=== PATIENT | female | born 1965 | race Caucasian/White ===

== ENCOUNTER → 2020-07-11 14:26 | Outpatient (CLI) | payer SELFPAY ==
--- NOTE | ~2020-07-11 | XR_ITS ---
EXAMINATION: XR lumbar spine 2-3V DATE: 07/11/2020 14:52 INDICATION: Low back pain. TECHNIQUE: 3 views of lumbar spine were obtained. COMPARISON: None. FINDINGS: There is 4 degrees dextrocurvature of lumbar spine. Vertebral body heights are normal. Ther e is moderately decreased disc height at L5-S1. There are endplate osteophytes at most levels. There is multilevel mild facet joint osteoarthritis. There is a 6 x 3 mm calcification in the expected area of proximal right ureter. IMPRESSION: 1. Mild lumbar spondylosis. 2. Calcification in the expected area of proximal right ureter that may be a ureteral stone or vascul ar calcification. Reviewed, dictated and finalized at location A. IMPRESSION: 1. Mild lumbar spondylosis. 2. Calcification in the expected area of proximal right ureter that may be a ur eteral stone or vascular calcification.
== END ==
PROVIDERS: PCP Family Medicine Adolescent Medicine; Visit Provider Family Medicine Adolescent Medicine
DX: M47.896 Other spondylosis, lumbar region (principal)
CPT/HCPCS: 72100

== ENCOUNTER → 2020-07-27 13:32 | Outpatient (CLI) | payer SELFPAY ==
--- NOTE | ~2020-07-27 | MR_ITS ---
EXAMINATION: MR lumbar spine wo/w con EXAM DATE: 07/27/2020 15:22 INDICATION: Low back pain, left leg pain, symptoms 3 weeks. Previous low back surgery 5 years ago. TECHNIQUE: Multi-sequential, multiplanar MR images of the lumbar spine were obtained without contrast . Sagittal T1, T2, T2 fat saturation images. Axial T2 weighted images. Axial T1 weighted sequence. Patient was then injected with 14 mL Multihance intravenous contrast and reimaged. Postcontrast axi al and sagittal T1-weighted fat saturation sequences were obtained. Comparison is made to prior exami nation from 10/19/2014. FINDINGS: There is moderate disc disease L5-S1 with endplate degenerative signal change. The vertebra l body and disc heights are otherwise well maintained. The vertebral bodies are aligned in the AP dim ension. The conus medullaris terminates at the L1/2 level and has normal signal intensity and morphol ogy. There is an 8 mm hemangioma within the L1 vertebral body. No suspicious marrow signal abnormali ty's. Paraspinal soft tissue is unremarkable. There are no areas of abnormal enhancement on the post contrast images. Incidental note made of somewhat tubular appearing cystic region in the right presacral region, poten tially could be ovarian in origin; recommend pelvic ultrasound for further evaluation. Level by level evaluation: T12-L1: Disc does not extend beyond the endplate margin. Facet arthropathy: Mild. Neural foraminal stenosis: No stenosis. Central canal stenosis: No stenosis. L1-L2: Disc does not extend beyond the endplate margin. Facet arthropathy: Mild. Neural foraminal stenosis: No stenosis. Central canal stenosis: No stenosis. L2-L3: Disc does not extend beyond the endplate margin. Facet arthropathy: Mild. Neural foraminal stenosis: No stenosis. Central canal stenosis: No stenosis. L3-L4: There is a minimal diffuse disc bulge. Facet arthropathy: Mild. Neural foraminal stenosis: No stenosis. Central canal stenosis: No stenosis. L4-L5: There is a mild diffuse disc bulge. Facet arthropathy: Mild. Neural foraminal stenosis: Mild bilateral. Central canal stenosis: No stenosis. L5-S1: There is a moderate-sized disc bulge asymmetric to the left causing narrowing of the left late ral recess. Facet arthropathy: Mild. Neural foraminal stenosis: Mild to moderate left. Central canal stenosis: Left lateral recess stenosis, overall mild to moderate central canal stenosis . Disc bulge at L5-S1 was present in 2014, but is larger with more mass effect and lateral recess, and some progression in the disc height loss, development of endplate degenerative signal change at that level. IMPRESSION: 1. Possible incidental cystic right ovarian lesion or hydrosalpinx; recommend pelvic sonogram for fu rther evaluation. 2. Moderate disc disease L5-S1, with asymmetric disc bulge narrowing left lateral recess, could be c ausing mass effect on traversing S1 nerve root; Correlate clinically for muscle weakness of plantar flexion, sensory change of the lateral foot and small toe, and depressed ankle reflex. 3. Otherwise mild lumbar spondylosis. Reviewed, dictated and finalized at location G. IMPRESSION: 1. Possible incidental cystic right ovarian lesion or hydrosalpinx; recommend pelvic sonogram for further evaluation. 2. Moderate disc disease L5-S1, with asymmetric disc bulge narrowing left late ral recess, could be causing mass effect on traversing S1 nerve root; Correlat e clinically for muscle weakness of plantar flexion, sensory change of the late ral foot and small toe, and depressed ankle reflex. 3. Otherwise mild lumbar spondylosis.
[2020-07-27 14:56] LABS: Estimated Glomerular Filt Rate > 60
== END ==
DX: M51.37 Other intervertebral disc degeneration, lumbosacral region (principal); M47.896 Other spondylosis, lumbar region
CPT/HCPCS: 72158; A9577

== ENCOUNTER → 2020-09-13 10:44 | Outpatient (CLI) | payer BC, SELFPAY ==
--- NOTE | ~2020-09-13 | US_ITS ---
EXAMINATION: US retroperitoneal comp EXAM DATE: 09/13/2020 11:42 INDICATION: Right kidney stone TECHNIQUE: Multiple grayscale and Doppler images of the kidneys were obtained (by a technologist who performed the scan) and subsequently reviewed. There is no prior study for comparison. FINDINGS: Right kidney: There is normal contour and echogenicity. It measures 10.0 x 4.5 x 5.2 centimeters. T here are no focal renal lesions identified, did not identify the suspected right kidney stone seen on x-ray obtained at same time. There is no hydronephrosis. Left kidney: There is normal contour and echogenicity. It measures 9.9 x 4.4 x 5.0 centimeters. The re are no focal renal lesions identified. There is no hydronephrosis. Somewhat bilobulated elongated cystic region in the midline of the pelvis, could be bladder but appea puneet did not change following patient voiding (patient reports only small amount of voiding at the t rivas). This could be patient's bladder, could be bladder diverticulum remaining filled with urine post void, or could be other structure. Patient likely had cross-sectional imaging at outside institution given history provided, consider correlating with that exam. IMPRESSION: 1. Sonographically unremarkable kidneys. 2. Cystic pelvic midline region, could be bladder, bladder diverticulum, less likely ovarian origin. See above. Reviewed, dictated and finalized at location B. T [address] [facility]
--- NOTE | ~2020-09-13 | XR_ITS ---
EXAMINATION: XR abdomen/kub 1V EXAM DATE: 09/13/2020 11:16 INDICATION: Right kidney stone TECHNIQUE: Frontal projection(s) of the abdomen for interpretation. There is no prior study for sowmya gonzalez. FINDINGS: There is approximately 8 mm calcification projecting over the right kidney, probably kidne y stone. Calcifications in the pelvis are believed to be phleboliths. There is a nonobstructive bowel gas pattern. There are no osseous abnormalities identified. IMPRESSION: Probable right nephrolithiasis. Reviewed, dictated and finalized at location B. L [employer]
== END ==
PROVIDERS: PCP Family Medicine Adolescent Medicine; Visit Provider Urology
DX: N20.0 Calculus of kidney (principal)
CPT/HCPCS: 74018; 76770

== ENCOUNTER → 2020-11-01 13:42 | Outpatient (CLI) | payer BC, SELFPAY ==
--- NOTE | ~2020-11-01 | XR_ITS ---
XR abdomen/kub 1V 11/01/2020 14:02 INDICATION: Right kidney stone TECHNIQUE: KUB COMPARISON: 09/13/2020 FINDINGS: Bowel gas pattern is normal. There is no evidence of free air, mass, organomegaly, ascites or obstruction. No abnormal calculi are seen. The previously identified right renal stone not visua lized on the current study. There are pelvic phleboliths. The bones appear intact. IMPRESSION: 1: No acute abdominal abnormality identified. Reviewed, dictated and finalized at location A. [facility]
== END ==
PROVIDERS: PCP Family Medicine Adolescent Medicine; Visit Provider Urology
DX: N20.0 Calculus of kidney (principal)
CPT/HCPCS: 74018

== ENCOUNTER → 2021-03-29 17:07 | Outpatient (CLI) | payer BC, SELFPAY ==
--- NOTE | ~2021-03-29 | MM_ITS ---
EXAMINATION: MM screening maxi BI w lydia HISTORY: Screening TECHNIQUE: Craniocaudal and mediolateral oblique 3-D tomosynthesis images were obtained and synthetic 2-D images were generated. CAD analysis was submitted and interpreted. COMPARISON: Comparison to multiple prior studies sequentially, with oldest reviewed study dated 08/07. BREAST PARENCHYMAL COMPOSITION: The breasts are heterogenously dense, which may obscure small masses. FINDINGS: There is focal architectural distortion in the upper outer quadrant of the right breast wit h adjacent tissue marker. The left breast is stable without evidence for malignancy. IMPRESSION: 1. Developing focal architectural distortion upper outer quadrant of the right breast. 2. Additional mammographic views and possible breast ultrasound are recommended. BI-RADS Category 0: Incomplete: Needs additional imaging evaluation. Reviewed, dictated and finalized at location A. IMPRESSION: 1. Developing focal architectural distortion upper outer quadrant of the right breast. 2. Additional mammographic views and possible breast ultrasound are recommended . BI-RADS Category 0: Incomplete: Needs additional imaging evaluation.
== END ==
PROVIDERS: PCP Family Medicine Adolescent Medicine; Visit Provider Obstetrics & Gynecology Gynecology
DX: Z12.31 Encounter for screening mammogram for malignant neoplasm of breast (principal); R92.8 Other abnormal and inconclusive findings on diagnostic imaging of breast
CPT/HCPCS: 77063; 77067

== ENCOUNTER → 2021-04-25 08:43 | Outpatient (CLI) | payer BC, SELFPAY ==
--- NOTE | ~2021-04-25 | US_ITS ---
US pelvic complete w TV 04/25/2021 10:12 Indication: Pelvic pain. Hydrosalpinx. Procedure: High-resolution ultrasound of the pelvis utilizing transabdominal and transvaginal ultraso und Comparison: No prior studies for comparison. Findings: The uterus is surgically absent. In the right adnexa there are 2 adjacent or possibly one s eptated cystic mass. The masses measure 4.7 x 3.9 x 4 cm and 4.9 x 3.8 x 3.5 cm respectively. There i s a single internal septation. Left ovary is not visualized. Impression: 1: Cystic masses of the right adnexa containing a single internal septation. Differential diagnosis i ncludes hydrosalpinx, paraovarian/paratubal cysts, serous cystadenoma, peritoneal inclusion cyst. Reviewed, dictated and finalized at location A. Impression: 1: Cystic masses of the right adnexa containing a single internal septation. Di fferential diagnosis includes hydrosalpinx, paraovarian/paratubal cysts, serous cystadenoma, peritoneal inclusion cyst.
--- NOTE | ~2021-04-25 | MMUS_ITS ---
EXAMINATION: MM diagnostic mammo unilat RT, US breast RT limited HISTORY: Right breast architectural distortion on screening mammogram TECHNIQUE: Additional 3-D tomosynthesis images of the right breast were performed and synthetic 2-D i mages were generated. CAD analysis was submitted and interpreted. High resolution limited right breas t ultrasound was performed. COMPARISON: 03/29/2021, 03/31/2019, 03/24/2019 FINDINGS: MAMMOGRAPHIC FINDINGS: There is a spiculated mass in the upper outer quadrant of the right breast at the 10:00 location 7 cm from the nipple which appears to have increased in size since the comparison examinations. An adjace nt biopsy marker is noted. ULTRASOUND: There is an 11 mm irregular hypoechoic mass with angular and spiculated margins, posterior acoustic s hadowing, and internal vascularity at the 10:00 location 6 cm from the nipple. The mass has a similar appearance to the 2019 comparison. IMPRESSION: 1. Mass in the upper outer quadrant of the right breast with possible increase in size since the comp arison examinations. Although an adjacent biopsy marker is seen, ultrasound-guided biopsy is recommen ded. BI-RADS category 4, suspicious findings. Reviewed, dictated and finalized at location A. IMPRESSION: 1. Mass in the upper outer quadrant of the right breast with possible increase in size since the comparison examinations. Although an adjacent biopsy marker i s seen, ultrasound-guided biopsy is recommended. BI-RADS category 4, suspicious findings.
== END ==
PROVIDERS: Visit Provider Obstetrics & Gynecology Gynecology
DX: R92.8 Other abnormal and inconclusive findings on diagnostic imaging of breast (principal); R10.2 Pelvic and perineal pain; N63.11 Unspecified lump in the right breast, upper outer quadrant; N70.11 Chronic salpingitis
CPT/HCPCS: 76642; 76830; 76856; 77065

== ENCOUNTER 2021-05-19 08:53 | Outpatient (CLI) | payer BC, OTHER, SELFPAY ==
--- NOTE | ~2021-05-19 | MMUS_ITS ---
EXAMINATION: US breast biopsy RT w image, MM post biopsy invasive RT DATE: 05/19/2021 10:31 (accession [id number]), 05/19/2021 10:27 (accession [id number]) INDICATION: Indeterminate mass in the upper outer quadrant of the right breast. Ultrasound-guided cor e biopsy is requested to evaluate for malignancy. TECHNIQUE AND FINDINGS: The risks and potential benefits of the procedure were discussed with the patient including bleeding, infection, and nondiagnostic specimen. A time out was performed. The skin of the right breast was pr epared and draped in usual sterile fashion. 1% lidocaine was used for superficial anesthesia. 1% lido hussain with epinephrine was used for deep anesthesia. A vacuum-assisted biopsy gun needle was advanced through to the outer edge of the region of interest from an inferior approach utilizing sonographic guidance. A total of four tissue core samples were ob tained through the lesion. A tissue marker clip was then placed at the biopsy site. Hemostasis was ac hieved. A sterile bandage was applied. The patient tolerated procedure well and there was no evidence of immediate complication. The patient was given verbal instructions to return to the Emergency Department in the event of severe breast pa in or rapid breast enlargement. A two view right breast mammogram was obtained to document tissue mar ker clip placement. IMPRESSION: 1. Successful ultrasound-guided vacuum-assisted biopsy of right breast mass with tissue marker placem ent. Reviewed, dictated and finalized at location A. IMPRESSION: 1. Successful ultrasound-guided vacuum-assisted biopsy of right breast mass wit h tissue marker placement.
== END 2021-05-19 08:54 | disposition home or self-care (01) ==
LOC: ANHIMG 08:58
PROVIDERS: PCP Family Medicine Adolescent Medicine; Visit Provider Surgery
DX: C50.911 Malignant neoplasm of unspecified site of right female breast (principal)
CPT/HCPCS: 19083; 88305; 88360; A4648

== ENCOUNTER → 2021-05-30 10:43 | Outpatient (CLI) | payer BC, OTHER, SELFPAY ==
--- NOTE | ~2021-05-30 | US_ITS ---
EXAMINATION: US renal BI DATE: 05/30/2021 11:10 INDICATION: Right kidney stone TECHNIQUE: Multiple grayscale and Doppler ultrasound images of the kidneys were obtained. COMPARISON: 09/13/2020, 04/25/2021 FINDINGS: The right kidney measures 9.7 x 6.2 x 4.6 cm. The left kidney measures 10.0 x 4.6 x 4.6 cm. The kidneys demonstrate normal parenchymal echogenicity. There is no hydronephrosis. The bladder is normal. Cysts are again noted in the left adnexa which measure up to 4.4 cm. IMPRESSION: 1. Normal kidneys without hydronephrosis. 2. Left adnexal cysts. Follow-up pelvic ultrasound in one year is recommended for a postmenopausal pa tient. Reviewed, dictated and finalized at location B. IMPRESSION: 1. Normal kidneys without hydronephrosis. 2. Left adnexal cysts. Follow-up pelvic ultrasound in one year is recommended f or a postmenopausal patient.
--- NOTE | ~2021-05-30 | XR_ITS ---
EXAMINATION: XR abdomen/kub 1V EXAM DATE: 05/30/2021 11:43 INDICATION: Right-sided kidney stone. TECHNIQUE: Frontal projection(s) of the abdomen for interpretation. Comparison is made to prior exami nation from 11/01/2020. FINDINGS: There is moderate amount of colonic stool and gas, obscuring the renal contours. No small bowel dilation, nonobstructive bowel gas pattern. There are no suspicious calcifications identifie d. There is no organomegaly suspected. The bones are unremarkable. There is no free intraperito alise air. The lung bases are clear. IMPRESSION: Unremarkable abdomen x-ray exam. Reviewed, dictated and finalized at location A.
== END ==
PROVIDERS: PCP Family Medicine Adolescent Medicine; Visit Provider Urology
DX: N20.0 Calculus of kidney (principal)
CPT/HCPCS: 74018; 76775

== ENCOUNTER 2021-06-06 13:06 | Outpatient (CLI) | payer BC, OTHER, SELFPAY ==
--- NOTE | 2021-06-06 13:18 | ECG_ITS ---
Measurements Intervals [place] Rate: 71 P: 38 IN: 130 QRS: 20 QRSD: 94 T: 55 QT: 401 QTc: 437 Interpretive Statements SINUS RHYTHM MINIMAL Q WAVES- INFERIOR LEADS BORDERLINE T WAVE ABNORMALITY- DIFFUSE LEADS BASELINE ARTIFACT- I, II, AVR, AVL BORDERLINE ECG Electronically Signed On 06-06-2021 16:03:44 CDT by Quinton Gay D.O.
[2021-06-06 14:20] LABS: Basophils Percent Auto 0.5 % (0.2-1.2); Eosinophils Absolute Auto 0.4 K/mm3 (0-0.3); Hemoglobin 12.3 g/dL (12.0-15.0); Immature Granulocyte Absolute 0.04 K/mm3 (0.00-0.031); Immature Granulocyte Percent A 0.5 % (0-0.5); Lymphocytes Absolute Auto 3.17 K/mm3 (0.9-3.2); Lymphocytes Percent Auto 41.9 % (18.3-44.2); Mean Corpuscular HGB Conc 31.5 g/dl (32-36); Mean Corpuscular Hemoglobin 30.7 pg (26-34); Mean Corpuscular Volume 97.3 fl (80-100); Mean Platelet Volume 10.2 fl (7.4-10.4); Monocytes Absolute Auto 0.5 K/mm3 (0.1-0.6); Monocytes Percent Auto 6.6 % (2.6-8.5); Neutrophils Absolute Auto 3.4 K/mm3 (1.3-6.7); Neutrophils Percent Auto 45.5 % (45.5-73.1); Platelet Count Result 221 k/mm3 (150-375); Red Blood Count 4.01 M/mm3 (4.2-5.4); Red Cell Distribution Width 12.6 % (11.5-14.5); White Blood Count 7.6 K/mm3 (4.5-10.0)
[2021-06-06 14:30] LABS: Anion Gap 8 mmol/L (8-16); Blood Urea Nitrogen 21 mg/dL (7-17); Calcium 9.1 mg/dL (8.4-10.2); Carbon Dioxide 24 mmol/L (22-30); Chloride 113 mmol/L (98-107); Estimated Glomerular Filt Rate 47; Glucose 123 mg/dL (65-110); Potassium 4.2 mmol/L (3.4-5.0); Sodium 145 mmol/L (137-145)
== END 2021-06-06 13:07 | disposition home or self-care (01) ==
PROVIDERS: PCP Family Medicine Adolescent Medicine; Visit Provider Surgery
DX: C50.911 Malignant neoplasm of unspecified site of right female breast (principal); E78.00 Pure hypercholesterolemia, unspecified; I10 Essential (primary) hypertension; Z01.818 Encounter for other preprocedural examination
CPT/HCPCS: 36415; 80048; 85025; 93005

== ENCOUNTER 2021-06-12 02:15 | Day surgery (SDC) | payer BC, OTHER, SELFPAY ==
[2021-06-06 09:50] VITALS: BMI 26.4
--- NOTE | 2021-06-09 12:38 | WPDANESEPPF ---
Anes - Initial Pre Proc Eval Procedure: Operation Date: 06/12/21 09:30 Proposed Procedures p Right Breast Lumpectomy with [place] Lymph Node Biopsy, Possible Right Axillary Dissection - Tre Urrutia MD s Ultrasound and/or Mammogram Guided Needle Localization Right Breast - Tre Urrutia MD Date/Time: 06/09/21 12:38 Surgeon: Tre Urrutia MD Pre Op Diagnosis: right breast CA Patient Data Age: 56 Gender: F Height: 1.74 m Weight: 80 kg Allergies Allergy/AdvReac Type Severity Reaction Status Date / Time codeine Allergy Mild RASH AND Verified 06/12/21 07:38 ITCHING Home Medications Medication Instructions Recorded Confirmed Type atorvastatin 40 mg tablet 40 mg PO DAILY 05/03/21 06/12/21 History bupropion HCl 300 mg 24 hr tablet, 300 mg PO QAM 05/03/21 06/12/21 History extended release lorazepam 1 mg tablet 1 mg PO DAILY 05/03/21 06/12/21 History propranolol 80 mg capsule,24 80 mg PO DAILY 05/03/21 06/12/21 History hr,extended release sumatriptan succinate 100 mg tablet 100 mg PO ONCE PRN 05/03/21 06/12/21 History topiramate 50 mg tablet 200 mg PO DAILY 05/03/21 06/12/21 History trazodone 100 mg tablet 100 mg PO QHS PRN 05/03/21 06/12/21 History venlafaxine 75 mg capsule,extended 75 mg PO DAILY 05/03/21 06/12/21 History release 24 hr biotin 10,000 mcg-keratin 100 mg 1 tablet PO DAILY 05/08/21 06/12/21 History tablet lactobacillus combo no.11 15 1 cap PO DAILY 05/08/21 06/12/21 History billion cell sprinkle capsule loratadine [Allergy Relief 10 mg PO DAILY 06/06/21 06/12/21 History (loratadine)] Patient hx anesthesia problems: none Family hx anesthesia problems: none PMFSH Past Medical History Medical History (Updated 06/09/21 @ 12:38 by Gopi Scanlon MD) Anxiety Depression High cholesterol Hypercholesteremia Hypertension Kidney stones Surgical History Surgical History H/O lithotripsy History of appendectomy Previous back surgery S/P hysterectomy Family History Family History Father Diabetes mellitus Sibling Liver cancer Heart attack Unknown Diabetes mellitus Hypertension Cancer Nervous disorder Allergy Social History Social History Years smoked: 5 Smoking status: Current every day smoker Tobacco type: cigarettes Alcohol intake: current Alcohol use details: occasional Substance use: current Substance use type: marijuana Other substance usage details: medical marijuana for back injury Last use: 03-30-21 Living arrangements: with friend(s) Spiritual care concerns: No Anes - Eval Final PreProcedure Day of Procedure 06/09/21 12:38 Patient weight: overweight Heart: regular rate and rhythm Lungs: clear to auscultation Airway: Mallampati scale class II Neurological: alert and oriented Last oral intake: >/= 8 hours ASA classification: III Emergent: no Anesthetic plan: proceed Anesthesia type and monitoring: general ETT and standard monitoring Informed Consent: The patient's anesthetic plan and its attendant risks and benefits were discussed with the patient/family/POA. Questions were solicited and answers provided to the satisfaction of the patient/family/POA.
[2021-06-12] VITALS (8 sets, daily range): BP systolic 103–122; BP diastolic 56–79; PULSE 68–87; RESP 12–20; TEMP 36.2–36.3; O2SAT 92–100
--- NOTE | ~2021-06-12 | NM_ITS ---
EXAMINATION: MM needle loc RT, MM surgical specimen RT, NM sentinel node inject only MAMMOGRAPHY SPECIMEN DATE: 06/12/2021 11:07 CDT INDICATION: Left breast cancer. TECHNIQUE: The procedure for a mammography-guided needle localization was discussed with the patient' s. Risks and benefits were detailed, including risks of bleeding, infection, pain, and nondiagnostic specimen. The patient verbalized understanding and agreed to proceed. The time out was performed to verify the patient's name, date of , and site of procedure. The p atient was placed in the right is compression, and the skin overlying the right breast was prepped in usual fashion. Utilizing mammography guidance, a needle was advanced into the right breast. Two co nfirmatory films were obtained. The patient tolerated procedure without immediate complication. 1 Millicuries Tc 99m filtered sulfur colloid was injected and 4 aliquots in the anterior upper outer quadrant of the breast near the areola. No images were obtained. A specimen radiograph was performed. IMPRESSION: 1. Successful mammography-guided right breast needle localization. 2: Status post sentinel lymph node injection. Reviewed, dictated and finalized at location A. IMPRESSION: 1. Successful mammography-guided right breast needle localization. 2: Status post sentinel lymph node injection. IMPRESSION: 1. Successful mammography-guided right breast needle localization. 2: Status post sentinel lymph node injection.
[2021-06-12] MEDS: LACTATED RINGERS 1,000 ML 30 ML IV CONT ×2 (07:05→11:44)
--- NOTE | 2021-06-12 07:13 | WPDHPUPDATE1 ---
History and Physical Update Update Date/Time: 06/12/21 07:13 History and Physical has been reviewed, including an updated exam of the patient. There are NO changes in the patient's condition. Risks, benefits, and alternatives have been discussed and questions answered. Patient agrees to proceed with procedure.
[2021-06-12] MEDS: fentaNYL CITRATE INJ (*CRX) 100 MCG/2 ML VIAL 25 MCG IV PUSH (07:18)
--- NOTE | 2021-06-12 07:50 | SUR.PREOP ---
0720 PT MEDICATED FOR C/O HEADACHE 0742 PT TO MAMMS PER WHEELCHAIR.
--- NOTE | 2021-06-12 08:54 | SUR.PREOP ---
0850 PT RETURNED FROM NUCLEAR MEDICINE
[2021-06-12] MEDS: ceFAZolin 2 GM/D5W 50 ML 2 GM/50 ML BAG IVPB (09:49)
[2021-06-12] MEDS: BUPIVACAINE/EPINEPHRINE 0.25% 10 ML VIAL 20 ML INFILTRATE (10:19)
--- NOTE | 2021-06-12 12:06 | W.PM.PROC2 ---
Procedure Note - Detailed Date of Procedure 06/12/21 Pre-op Diagnosis right breast CA Post-op Diagnosis same Procedure Performed 1. [place] lymph node biopsy times 1. 2. needle localized right breast lumpectomy. Surgeon Tre Urrutia MD Wax Ball Molder [facility] [place], [place] 1st assist Anesthesia general (via LMA) Indications patient recent core biopsy showing carcinoma of the breast Findings Only 1 sentinel lymph node which was laterally attached to the lumpectomy specimen once this was excised. Careful surge several times in the axillary area through the incision of the lumpectomy revealed no nodes hot enough to remove period and there were no palpable nodes found. Description of Procedure The patient was seen preoperatively in the holding area, and I marked the patient on the operative side. She was brought to the operating room and anesthesia delivered. She was prepped and draped in the usual sterile fashion. A time out was performed confirming patient and site of surgery. I first used the sentinel lymph node probe to check the counts at the level of the nipple and I could find areas that were as high as 4000. Following this having marked what appears to be the appropriate place for an axillary incision, I carefully used the probe to search for a hot area on the skin overlying the sentinel lymph node. We found that the hot area was between this theresa and the curvilinear incision that I had outlined that I would use for doing the lumpectomy. This was because the wire was exiting the upper outer quadrant of the right breast. Therefore, I decided to go ahead with the lumpectomy first and then try to do the sentinel lymph node through the same incision in the upper outer quadrant of the right breast. Prior to starting the incision I reviewed the mammograms that were available. The patient had 3 clips in her breast. One was more centralized underneath the nipple and I checked with Dr. Morgan from Radiology and this did not need to be excised. The other 2 were near the localizing wire and these were the ones that we wanted to target for excision. An incision was made with a 15 blade scalpel on the right intersecting the skin at the site where the localizing wire was entering the upper outer quadrant of the right breast. The subcutaneous tissues were dissected with electrocautery. A curvilinear incision was made along the wire and the tissue surrounding the wire was removed widely with electrocautery. The specimen was oriented with a long suture lateral and short suture superior and sent for specimen mammogram. Because I had not completed the sentinel lymph node biopsy, prior to sending this, we did check the entire specimen with the Navigator probe. In the lateral part of the specimen near where it would have abutted the edge of the pectoralis major muscle there was what appeared to be a hot area that read up to 800 on the 1 X setting on the navigator probe. Then went we did a 10 second count right at that site and it read out at 8625. I DID send the breast tissue for fresh tissue exam immediate report requested at pathology. Because of this I placed a green suture right next to the tissue where I thought sentinel lymph node was on the lateral side of the breast tissue specimen and sent this to mammography for a specimen mammogram. Using the Navigator sentinel lymph node probe, the sentinel lymph node was identified and the count in vivo was 865 . Then with a ex vivo 10- second count of 8625 was recorded. As we waited for the report from mammography and pathology, I then carefully used the Navigator probe throughout the incision and throughout the axilla externally on the skin and could never find anything that registered greater than 100 counts. Therefore, a second sentinel lymph node was never identified. The count in the axilla after removing this lymph node was between 20 and 95, for background noise. The sentinel lymph node was sent fresh
== END 2021-06-12 13:26 | disposition home or self-care (01) ==
PROVIDERS: PCP Family Medicine Adolescent Medicine; Visit Provider Surgery
PROC: (CPT 19301; principal; 2021-06-12 09:30)
PROC: (CPT 19301; 2021-06-12 09:30)
DX: C50.911 Malignant neoplasm of unspecified site of right female breast (principal); E78.00 Pure hypercholesterolemia, unspecified; I10 Essential (primary) hypertension; F41.8 Other specified anxiety disorders; F17.210 Nicotine dependence, cigarettes, uncomplicated; F12.90 Cannabis use, unspecified, uncomplicated
CPT/HCPCS: 19301; 38525; 19281; 38792; 76098; 88307; 88342; A9270; A9520; C1769; J0690; J1100; J2250; J2370; J2405; J2704; J2710; J3010; J7120

== ENCOUNTER → 2021-07-13 08:27 | Outpatient (CLI) | payer BC, SELFPAY ==
--- NOTE | ~2021-07-13 | US_ITS ---
EXAMINATION: US transvaginal EXAM DATE: 07/13/2021 09:02 INDICATION: Abnormal findings on diagnostic imaging of other . Follow-up right ovarian cystic lesion. TECHNIQUE: Pelvic transvaginal sonogram was performed. There are multiple grayscale and Doppler imag es available for interpretation. There is no prior study for comparison. FINDINGS: Patient has had hysterectomy. Right ovary is enlarged at 6.9 x 4.0 x 6.4 cm, with low resis tance flow confirmed. Again there are 2 contiguous simple cystic regions in the right ovary, dimensio ns today at 3.8 x 3.9 x 3.5 cm and 2.7 x 4.7 x 3.7 cm. These could be the same cystic lesion with a s eptation, 2 separate cysts, or paraovarian cysts, or chronic hydrosalpinx. If this is cystic ovarian neoplasm, would favor benign over malignant histology given absence of focal wall thickening or nodul arity. Left ovary not identified. IMPRESSION: Cystic right ovary unchanged. Differential diagnosis including cystic ovarian neoplasm, chronic hydrosalpinx. Could consider longer interval follow-up, or histologic correlation. Reviewed, dictated and finalized at location B. IMPRESSION: Cystic right ovary unchanged. Differential diagnosis including cys tic ovarian neoplasm, chronic hydrosalpinx. Could consider longer interval foll ow-up, or histologic correlation.
== END ==
PROVIDERS: PCP Family Medicine Adolescent Medicine; Visit Provider Obstetrics & Gynecology Gynecology
DX: R93.5 Abnormal findings on diagnostic imaging of other abdominal regions, including retroperitoneum (principal)
CPT/HCPCS: 76830

== ENCOUNTER 2021-11-02 10:00 | Outpatient (CLI) | payer BC, SELFPAY ==
--- NOTE | ~2021-11-02 | US_ITS ---
EXAMINATION: US pelvic complete DATE: 11/02/2021 10:58 INDICATION: Ovarian cysts Comparison:Ultrasound dated 07/13/2021 TECHNIQUE: Multiple transabdominal and endovaginal sonographic images of the pelvis performed. FINDINGS: The uterus is surgically absent. There are right ovarian cysts measuring 5.4 and 6.2 cm respectively greatest dimension. Left ovary is not visualized. There is no free fluid in the pelvis. There are no abnormal masses seen on either side. IMPRESSION: 1. Persistent right ovarian cysts, largest measuring up to 6.2 cm maximum dimension. Differential candace gnosis includes cystic ovarian neoplasm and benign functional cyst or cystadenoma. Reviewed, dictated and finalized at location A. [facility] IMPRESSION: 1. Persistent right ovarian cysts, largest measuring up to 6.2 cm maximum dimen [place]. Differential diagnosis includes cystic ovarian neoplasm and benign functi onal cyst or cystadenoma.
== END 2021-11-02 10:01 | disposition home or self-care (01) ==
LOC: ANHIMG 10:02
PROVIDERS: PCP Family Medicine Adolescent Medicine; Visit Provider Obstetrics & Gynecology Gynecology
DX: N83.201 Unspecified ovarian cyst, right side (principal)
CPT/HCPCS: 76856

== ENCOUNTER 2021-12-12 11:19 | Outpatient (CLI) | payer BC, SELFPAY ==
--- NOTE | ~2021-12-12 | MM_ITS ---
EXAMINATION: MM diagnostic maxi RT w lydia HISTORY: Right breast cancer. Status post lumpectomy 6 months prior. TECHNIQUE: Additional 3-D tomosynthesis images of were performed and synthetic 2-D images were genera christy. CAD analysis was submitted and interpreted. COMPARISON: Comparison to multiple prior studies sequentially, with oldest reviewed study dated 03/29. BREAST PARENCHYMAL COMPOSITION: The breasts are heterogenously dense, which may obscure small masses. FINDINGS: There is focal architectural distortion in the upper outer quadrant of the right breast, co nsistent with previous lumpectomy site. There are no suspicious calcifications or discrete masses. IMPRESSION: 1. Postoperative changes in the upper outer quadrant of the right breast. No evidence for malignancy. 2. Routine yearly screening mammogram and regular clinical breast examination are recommended. BI-RADS Category 2: Benign finding(s). Reviewed, dictated and finalized at location A. TER DESIGNER IMPRESSION: 1. Postoperative changes in the upper outer quadrant of the right breast. No ev idence for malignancy. 2. Routine yearly screening mammogram and regular clinical breast examination a re recommended. BI-RADS Category 2: Benign finding(s).
== END 2021-12-12 11:20 | disposition home or self-care (01) ==
LOC: ANHIMG 11:21
PROVIDERS: PCP Family Medicine Adolescent Medicine; Visit Provider Radiology Radiation Oncology
DX: C50.411 Malignant neoplasm of upper-outer quadrant of right female breast (principal); Z98.890 Other specified postprocedural states
CPT/HCPCS: 77061; 77065; G0279

== ENCOUNTER 2021-12-18 00:39 | Day surgery (SDC) | payer BC, SELFPAY ==
[2021-12-12 09:48] VITALS: BMI 25.1
[2021-12-18 09:29] VITALS: BP 105/66; PULSE 73; RESP 16; TEMP 37.1; O2SAT 98
[2021-12-18] MEDS: LACTATED RINGERS 1,000 ML 150 ML IV CONT (09:32)
--- NOTE | 2021-12-18 09:39 | WPDANESEPPF ---
Anes - Initial Pre Proc Eval Procedure: Operation Date: 12/18/21 10:30 Proposed Procedures p Screening Colonoscopy - Jared Atkinson MD Date/Time: 12/18/21 09:39 Surgeon: Jared Atkinson MD Pre Op Diagnosis: neoplasm screening Patient Data Age: 56 Gender: F Height: 1.73 m Weight: 75.9 kg Last Vital Signs Temp 37.1 C 12/18/21 09:29 Pulse 73 12/18/21 09:29 Resp 16 12/18/21 09:29 BP 105/66 12/18/21 09:29 Pulse Ox 98 12/18/21 09:29 Allergies Allergy/AdvReac Type Severity Reaction Status Date / Time codeine Allergy Mild RASH AND Verified 12/18/21 09:28 ITCHING Home Medications Medication Instructions Recorded Confirmed Type atorvastatin 40 mg tablet 40 mg PO DAILY 05/03/21 12/18/21 History lorazepam 1 mg tablet 1 mg PO DAILY 05/03/21 12/18/21 History propranolol 80 mg capsule,24 80 mg PO DAILY 05/03/21 12/18/21 History hr,extended release sumatriptan succinate 100 mg tablet 100 mg PO ONCE PRN 05/03/21 12/18/21 History topiramate 50 mg tablet 200 mg PO DAILY 05/03/21 12/18/21 History trazodone 100 mg tablet 100 mg PO QHS PRN 05/03/21 12/18/21 History venlafaxine 75 mg capsule,extended 75 mg PO DAILY 05/03/21 12/18/21 History release 24 hr biotin 10,000 mcg-keratin 100 mg 1 tablet PO DAILY 05/08/21 12/18/21 History tablet lactobacillus combo no.11 15 1 cap PO DAILY 05/08/21 12/18/21 History billion cell sprinkle capsule loratadine [Allergy Relief 10 mg PO DAILY 06/06/21 12/18/21 History (loratadine)] anastrozole 1 mg PO DAILY 07/25/21 12/18/21 History bupropion HCl 300 mg 24 hr tablet, 300 mg PO QAM #90 tablet 12/12/21 12/18/21 Rx extended release Patient hx anesthesia problems: none Family hx anesthesia problems: none Results Review: All pre-operative results and documents have been reviewed as part of the pre-operative evaluation. [facility] Past Medical History Medical History Anxiety Depression High cholesterol Hypercholesteremia Hypertension Kidney stones Surgical History Surgical History H/O lithotripsy History of appendectomy History of lumpectomy 06/12/21 [place] lymph node biopsy times 1. 2. needle localized right breast lumpectomy. Previous back surgery S/P hysterectomy Family History Family History Father Diabetes mellitus Sibling Liver cancer Heart attack Unknown Diabetes mellitus Hypertension Cancer Nervous disorder Allergy Social History Social History Smoking packs per day: 0.5 Smoking cigarettes per day: 10.0 Years smoked: 8 Smoking pack-years: 4.00 Smoking status: Former smoker Tobacco type: cigarettes Smokeless tobacco user: other Additional smoking assessment comments: down to 1/4 pack of day currently vaping Alcohol intake: never Alcohol use details: occasional Substance use: current Substance use type: does not use Other substance usage details: medical marijuana for back injury Last use: 03-30-21 Living arrangements: with family Spiritual care concerns: No Anes - Eval Final PreProcedure Day of Procedure 12/18/21 09:39 Patient weight: overweight Heart: regular rate and rhythm Lungs: clear to auscultation and normal air movement Airway: Mallampati scale class II Neurological: alert and oriented Last oral intake: >/= 8 hours ASA classification: III Emergent: no Anesthetic plan: proceed Anesthesia type and monitoring: general GIVS and standard monitoring Results Review: All pre-operative results and documents have been reviewed as part of the pre-operative evaluation. Informed Consent: The patient's anesthetic plan and its attendant risks and benefits were discussed with the patient/family/POA. Questions were solicited
--- NOTE | 2021-12-18 10:16 | PM.HPGS ---
History of Present Illness History of Present Illness Consent: Risks, benefits, and alternatives have been discussed and questions answered. Patient agrees to proceed with procedure. Chief complaint: neoplasm screening Narrative: Daisy Benz is a 56 year old female with colon polyp 5 years ago. Review of Systems Constitutional: Constitutional: Denies headache(s) and Denies weakness Eyes: Eyes: Denies blurry vision ENT: Reports Normal hearing present, Denies headache(s) and Denies neck pain Cardiovascular: Cardiovascular: Denies chest pain and Denies dyspnea Respiratory: Respiratory: Denies dyspnea Gastrointestinal: Gastrointestinal: Reports no additional gastrointestinal complaints Genitourinary: Genitourinary: Denies dysuria Musculoskeletal: Musculoskeletal: Denies neck pain Integumentary/Breasts: Skin/Breast: Denies dry skin Neurologic: Reports Normal hearing present, Denies headache(s) and Denies weakness Psychiatric: Psychiatric: Denies anxiety Endocrine: Endocrine: Denies change in body appearance Hematologic/Lymphatic: Hematologic/Lymphatic: Denies easy bleeding Allergic/Immunologic: Allergic/Immunologic: Denies urticaria PMFSH Past Medical History Medical History (Updated 12/18/21 @ 10:17 by Jared Atkinson MD) Anxiety Colon polyp Depression High cholesterol Hypercholesteremia Hypertension Kidney stones Surgical History Surgical History (Updated 08/14/21 @ 09:53 by Linda Alves MD) H/O lithotripsy History of appendectomy History of lumpectomy 06/12/21 [place] lymph node biopsy times 1. 2. needle localized right breast lumpectomy. Previous back surgery S/P hysterectomy Family History Family History Father Diabetes mellitus Sibling Liver cancer Heart attack Unknown Diabetes mellitus Hypertension Cancer Nervous disorder Allergy Social History Social History Smoking packs per day: 0.5 Smoking cigarettes per day: 10.0 Years smoked: 8 Smoking pack-years: 4.00 Smoking status: Former smoker Tobacco type: cigarettes Smokeless tobacco user: other Additional smoking assessment comments: down to 1/4 pack of day currently vaping Alcohol intake: never Alcohol use details: occasional Substance use: current Substance use type: does not use Other substance usage details: medical marijuana for back injury Last use: 03-30-21 Living arrangements: with family Spiritual care concerns: No Meds Home Medications and Allergies Home Medications Medication Instructions Recorded Confirmed Type atorvastatin 40 mg tablet 40 mg PO DAILY 05/03/21 12/18/21 History lorazepam 1 mg tablet 1 mg PO DAILY 05/03/21 12/18/21 History propranolol 80 mg capsule,24 80 mg PO DAILY 05/03/21 12/18/21 History hr,extended release sumatriptan succinate 100 mg tablet 100 mg PO ONCE PRN 05/03/21 12/18/21 History topiramate 50 mg tablet 200 mg PO DAILY 05/03/21 12/18/21 History trazodone 100 mg tablet 100 mg PO QHS PRN 05/03/21 12/18/21 History venlafaxine 75 mg capsule,extended 75 mg PO DAILY 05/03/21 12/18/21 History release 24 hr biotin 10,000 mcg-keratin 100 mg 1 tablet PO DAILY 05/08/21 12/18/21 History tablet lactobacillus combo no.11 15 1 cap PO DAILY 05/08/21 12/18/21 History billion cell sprinkle capsule loratadine [Allergy Relief 10 mg PO DAILY 06/06/21 12/18/21 History (loratadine)] anastrozole 1 mg PO DAILY 07/25/21 12/18/21 History bupropion HCl 300 mg 24 hr tablet, 300 mg PO QAM #90 tablet 12/12/21 12/18/21 Rx extended release Allergies Allergy/AdvReac Type Severity Reaction Status Date / Time codeine Allergy Mild RASH AND Verified 12/18/21 09:28 ITCHING Vital Signs Vital Signs - 24 hr 12/18/21 09:29 Temperature 98.8 F Pulse Rate 73 Respiratory Rate 16 Blood Pressure 105/66 Puls
[2021-12-18 10:43] VITALS: BP 106/68; PULSE 72; RESP 16; O2SAT 99
[2021-12-18 10:53] VITALS: BP 97/55; PULSE 64; RESP 16; O2SAT 99
[2021-12-18 11:03] VITALS: BP 99/65; PULSE 63; RESP 18; O2SAT 99
== END 2021-12-18 11:13 | disposition home or self-care (01) ==
PROVIDERS: PCP Family Medicine Adolescent Medicine; Visit Provider Internal Medicine Gastroenterology
PROC: 0DJD8ZZ Inspection of Lower Intestinal Tract, Via Natural or Artificial Opening Endoscopic (ICD-10-PCS; CPT 45378; principal; 2021-12-18 10:30)
DX: Z12.11 Encounter for screening for malignant neoplasm of colon (principal); D12.4 Benign neoplasm of descending colon; K63.5 Polyp of colon; K64.8 Other hemorrhoids; I10 Essential (primary) hypertension; E78.00 Pure hypercholesterolemia, unspecified; F41.8 Other specified anxiety disorders; F17.290 Nicotine dependence, other tobacco product, uncomplicated; F12.90 Cannabis use, unspecified, uncomplicated
CPT/HCPCS: 45385; 88305; J2704; J7120

== ENCOUNTER 2022-01-29 10:05 | Outpatient (CLI) | payer BC, OTHER, SELFPAY ==
--- NOTE | ~2022-01-29 | US_ITS ---
EXAMINATION: US pelvic complete w TV DATE: 01/29/2022 11:07 INDICATION: Follow-up cysts Comparison:Ultrasound dated 11/02/2021 TECHNIQUE: Multiple transabdominal and endovaginal sonographic images of the pelvis performed. FINDINGS: The uterus is surgically absent. The right ovary measures 9.4 x 3.2 x 7.1 cm. Left ovary is not visualized. There are 2 right ovarian cyst both measuring 4.2 cm maximum dimension, decreased in size compared with prior examination. There is no free fluid in the pelvis. There are no abnormal masses seen on either side. IMPRESSION: 1. Diminishing size of simple cysts of the right ovary both measuring 4.2 cm maximum dimension. Inter braydon decrease in size suggest benign functional cysts although continued follow-up ultrasound in 6-8 w eeks recommended. Reviewed, dictated and finalized at location A. IMPRESSION: 1. Diminishing size of simple cysts of the right ovary both measuring 4.2 cm ma ximum dimension. Interval decrease in size suggest benign functional cysts alth ough continued follow-up ultrasound in 6-8 weeks recommended.
== END 2022-01-29 10:06 | disposition home or self-care (01) ==
LOC: ANHIMG 10:08
PROVIDERS: PCP Family Medicine Adolescent Medicine; Visit Provider Obstetrics & Gynecology Gynecology
DX: N83.201 Unspecified ovarian cyst, right side (principal)
CPT/HCPCS: 76830; 76856

== ENCOUNTER 2022-04-30 08:44 | Outpatient (CLI) | payer BC, OTHER, SELFPAY ==
[2022-04-30 09:32] LABS: Hematocrit 38.2 % (37.0-47.0); Hemoglobin 12.3 g/dL (12.0-15.0); Mean Corpuscular HGB Conc 32.2 g/dl (32-36); Mean Corpuscular Hemoglobin 31.6 pg (26-34); Mean Corpuscular Volume 98.2 fl (80-100); Mean Platelet Volume 9.9 fl (7.4-10.4); Platelet Count Result 269 k/mm3 (150-375); Red Blood Count 3.89 M/mm3 (4.2-5.4); Red Cell Distribution Width 12.7 % (11.5-14.5); White Blood Count 7.4 K/mm3 (4.5-10.0)
[2022-04-30 09:45] LABS: Alanine Aminotransferase 24 U/L (6-35); Albumin Level 4.2 g/dL (3.5-5.1); Alkaline Phosphatase 108 U/L (38-126); Anion Gap 7 mmol/L (8-16); Aspartate Amino Transferase 22 U/L (14-36); Bilirubin,Total 0.3 mg/dL (0.2-1.3); Blood Urea Nitrogen 16 mg/dL (7-17); Calcium 8.6 mg/dL (8.4-10.2); Carbon Dioxide 24 mmol/L (22-30); Chloride 113 mmol/L (98-107); Cholesterol 140 mg/dL (0-200); Estimated Glomerular Filt Rate 52; Glucose 107 mg/dL (65-110); HDL Direct 24 mg/dL; Sodium 144 mmol/L (137-145); Triglycerides 379 mg/dL (<150)
[2022-04-30 09:56] LABS: LDL Cholesterol Direct 39 mg/dL
[2022-04-30 10:16] LABS: Thyroid Stimulating Hormone 0.414 uIU/mL (0.465-4.680)
[2022-04-30 10:36] LABS: Hemoglobin A1C 5.6 % (<5.7)
== END 2022-04-30 08:45 | disposition home or self-care (01) ==
LOC: ANHLAB 08:46
PROVIDERS: PCP Family Medicine Adolescent Medicine; Visit Provider Physician Assistant
DX: R73.03 Prediabetes (principal); E78.2 Mixed hyperlipidemia; R53.83 Other fatigue
CPT/HCPCS: 36415; 80053; 80061; 83036; 84443; 85027

== ENCOUNTER 2022-05-03 14:08 | Outpatient (CLI) | payer BC, OTHER, SELFPAY | END 2022-05-03 14:09 | disposition home or self-care (01) | LOC: ANHLAB 14:09 | PROVIDERS: PCP Family Medicine Adolescent Medicine; Visit Provider Physician Assistant | DX: R19.7 Diarrhea, unspecified (principal) | CPT/HCPCS: 87045; 87427 ==

== ENCOUNTER 2022-05-18 08:28 | Outpatient (CLI) | payer BC, SELFPAY ==
[2022-05-18 14:38] LABS: Vitamin D 25 Hydroxy 48.4 ng/mL
== END 2022-05-18 08:29 | disposition home or self-care (01) ==
LOC: ANHLAB 08:33
PROVIDERS: PCP Family Medicine Adolescent Medicine; Visit Provider Obstetrics & Gynecology Gynecology
DX: Z13.21 Encounter for screening for nutritional disorder (principal)
CPT/HCPCS: 36415; 82306

== ENCOUNTER 2022-05-21 10:47 | Outpatient (CLI) | payer BC, SELFPAY ==
--- NOTE | ~2022-05-21 | MM_ITS ---
EXAMINATION: MM diagnostic maxi BI w lydia HISTORY: History of right breast cancer TECHNIQUE: Craniocaudal, mediolateral, and mediolateral oblique 3-D tomosynthesis images of the breas ts were performed and synthetic 2-D images were generated. CAD analysis was submitted and interpreted . COMPARISON: 12/12/2021, 04/25/2021, 03/29/2021, 03/31/2019, 03/24/2019 BREAST PARENCHYMAL COMPOSITION: The breasts are heterogeneously dense, which may obscure small masses . FINDINGS: There are stable lumpectomy changes in the upper outer quadrant of the right breast. There has been no suspicious interval change. There is no suspicious mass, calcification, or architectural distortion in the left breast to suggest malignancy. IMPRESSION: 1. Stable lumpectomy changes in the upper outer quadrant of the right breast without mammographic remigio dence of malignancy. 2. Recommend routine screening mammography in one year. BI-RADS Category 2: Benign finding(s). Reviewed, dictated and finalized at location A. IMPRESSION: 1. Stable lumpectomy changes in the upper outer quadrant of the right breast wi thout mammographic evidence of malignancy. 2. Recommend routine screening mammography in one year. BI-RADS Category 2: Benign finding(s).
== END 2022-05-21 10:48 | disposition home or self-care (01) ==
PROVIDERS: PCP Family Medicine Adolescent Medicine; Visit Provider Obstetrics & Gynecology Gynecology
DX: C50.911 Malignant neoplasm of unspecified site of right female breast (principal); C50.912 Malignant neoplasm of unspecified site of left female breast
CPT/HCPCS: 77062; 77066; G0279

== ENCOUNTER 2022-08-02 16:50 | Outpatient (CLI) | payer BC, SELFPAY ==
--- NOTE | ~2022-08-02 | DEXA_ITS ---
Bone Density Report Name: NESSA MCINTOSH Age: 57 Sex: Female Ethnicity: White Date of : 1965 Indication: postmenopausal; screening for osteoporosis; cancer; hysterectomy; Referring Provider: LOTUS ANTONIO Study: Bone densitometry was performed. Exam Date: August 02, 2022 Accession number: [id number] Bone Density: Region BMD T-score Z-score Classification AP Spine(L1, L2) 0.990 0.1 1.2 Normal Femoral Neck (Left) 0.617 -2.1 -1.0 Osteopenia Total Hip (Left) 0.768 -1.4 -0.7 Osteopenia Femoral Neck (Right) 0.556 -2.6 -1.5 Osteoporosis Total Hip (Right) 0.772 -1.4 -0.7 Osteopenia Total Hip Mean 0.770 -1.4 -0.7 Osteopenia World Health Organization criteria for BMD impression classify patients as: Normal (T-score at or above -1.0), Osteopenia (T-score between -1.0 and -2.5), or Osteoporosis (T-score at or below -2.5). 10-year Fracture Risk: FRAX not reported because: Some T-score for Spine Total or Hip Total or Femoral Neck at or below -2.5 Clinical Information Provided by Patient: Smokes Has the following medical conditions: Cancer, Hysterectomy Patient maximum height was 69 Menopause Age: 41 Drinks caffeinated beverages Onset of menses at age 14 Number of children 3 Impression: The patient has osteoporosis, based on the Right Femoral Neck T-score. The patient has risk factors, including: smoking. Discussion: INCREASED RISK OF FRACTURE. BONE DENSITY IS UNDESIRABLY LOW AT ONE OR MORE SKELETAL SITES, CONSISTENT WITH POSTMENOPAUSAL OSTEOPOROSIS. This patient's lowest T-score meets the World Health Organization's (WHO) criteria for osteoporosis at one or more sites (T-score -2.5 or below). In untreated patients, the risk of osteoporotic fracture increases approximately two-fold for each 1.0 SD decrease in T-score. Low bone density is not the only risk factor for fracture; also consider factors such as patient's age, frailty or poor health, risk of falling, risk of injury, previous osteoporotic fracture, family history of osteoporosis, cigarette smoking, low body weight, etc. Not everyone with low bone mineral density has osteoporosis; osteomalacia and other metabolic bone disorders should also be considered. Patients who have osteoporosis should be evaluated for specific diseases and conditions (secondary causes) that may cause or contribute to bone loss. The [place] [employer] Endocrinologists (AACE) and National Osteoporosis Foundation (NOF) recommend pharmacologic intervention for all postmenopausal women whose T-score is in this range. The patient should follow a healthful lifestyle (good nutrition with adequate calcium and vitamin D, and appropriate weight-bearing exercise). Follow-Up: Consider a repeat BMD and Vertebral Fracture Assessment (VFA) exam in 2 years
== END 2022-08-02 16:51 | disposition home or self-care (01) ==
PROVIDERS: PCP Family Medicine Adolescent Medicine; Visit Provider Obstetrics & Gynecology Gynecology
DX: Z78.0 Asymptomatic menopausal state (principal); M85.852 Other specified disorders of bone density and structure, left thigh; M85.851 Other specified disorders of bone density and structure, right thigh; M81.0 Age-related osteoporosis without current pathological fracture
CPT/HCPCS: 77080

== ENCOUNTER 2023-02-15 07:36 | Outpatient (CLI) | payer BC, MEDICAID, SELFPAY ==
--- NOTE | ~2023-02-15 | MM_ITS ---
EXAMINATION: MM screening maxi BI w lydia HISTORY: Screening TECHNIQUE: Craniocaudal and mediolateral oblique 3-D tomosynthesis images were obtained and synthetic 2-D images were generated. CAD analysis was submitted and interpreted. COMPARISON: Comparison to multiple prior studies sequentially, with oldest reviewed study dated 03/29. BREAST PARENCHYMAL COMPOSITION: The breasts are heterogeneously dense, which may obscure small masses FINDINGS: Stable architectural distortion in the upper outer quadrant of the right breast posteriorly , consistent with previous lumpectomy site. There are no new masses, calcifications or architectural distortion in either breast to suggest malignancy. IMPRESSION: 1. No mammographic evidence of malignancy. 2. Recommend routine screening mammography in one year. BI-RADS Category 2: Benign finding(s). Reviewed, dictated and finalized at location A.
== END 2023-02-15 07:37 | disposition home or self-care (01) ==
LOC: ANHIMG 07:38
PROVIDERS: PCP Family Medicine Adolescent Medicine; Visit Provider Obstetrics & Gynecology Gynecology
DX: Z12.31 Encounter for screening mammogram for malignant neoplasm of breast (principal)
CPT/HCPCS: 77063; 77067

== ENCOUNTER 2023-03-11 16:20 | Outpatient (CLI) | payer BC, MEDICAID, SELFPAY ==
--- NOTE | ~2023-03-11 | XR_ITS ---
Supine and upright views of the abdomen Clinical history: Renal stone COMPARISON: 05/30/2021 Findings: Bowel gas pattern is nonspecific. No evidence for obstruction or free air. No abnormal mass lesion or calcification is seen. Osseous structures are intact. Impression: No definite renal stone seen. Reviewed, dictated and finalized at [facility]. Impression: No definite renal stone seen.
[2023-03-11 18:20] LABS: Vitamin D 25 Hydroxy 60.8 ng/mL
== END 2023-03-11 16:21 | disposition home or self-care (01) ==
LOC: ANHIMG 16:28
PROVIDERS: PCP Family Medicine Adolescent Medicine; Referring Provider Obstetrics & Gynecology Gynecology; Visit Provider Urology
DX: N20.0 Calculus of kidney (principal); E55.9 Vitamin D deficiency, unspecified
CPT/HCPCS: 36415; 74018; 82306

== ENCOUNTER 2023-04-05 11:43 | Outpatient (CLI) | payer BC, MEDICAID, SELFPAY | END 2023-04-05 11:44 | disposition home or self-care (01) | LOC: ANHLAB 11:45 | PROVIDERS: PCP Family Medicine Adolescent Medicine; Visit Provider Nurse Practitioner Family | DX: N76.0 Acute vaginitis (principal); B96.89 Other specified bacterial agents as the cause of diseases classified elsewhere | CPT/HCPCS: 87491; 87591 ==

== ENCOUNTER 2023-05-24 11:18 | Outpatient (CLI) | payer BC, MEDICAID, SELFPAY ==
[2023-05-24 12:18] LABS: Alanine Aminotransferase 27 U/L (6-35); Albumin Level 4.5 g/dL (3.5-5.1); Alkaline Phosphatase 75 U/L (38-126); Anion Gap 9 mmol/L (8-16); Aspartate Amino Transferase 27 U/L (14-36); Bilirubin,Total 0.2 mg/dL (0.2-1.3); Blood Urea Nitrogen 22 mg/dL (7-17); Calcium 9.1 mg/dL (8.4-10.2); Carbon Dioxide 25 mmol/L (22-30); Chloride 107 mmol/L (98-107); Cholesterol 261 mg/dL (0-200); Estimated Glomerular Filt Rate 36; Glucose 93 mg/dL (65-110); HDL Direct 42 mg/dL; Potassium 4.4 mmol/L (3.4-5.0); Sodium 141 mmol/L (137-145); Triglycerides 288 mg/dL (<150)
[2023-05-24 12:29] LABS: LDL Cholesterol Direct 128 mg/dL
[2023-05-24 12:31] LABS: Hemoglobin A1C 5.9 % (<5.7)
== END 2023-05-24 11:19 | disposition home or self-care (01) ==
LOC: ANHLAB 11:19
PROVIDERS: PCP Family Medicine Adolescent Medicine; Visit Provider Nurse Practitioner Family
DX: R73.03 Prediabetes (principal); E78.2 Mixed hyperlipidemia; G43.001 Migraine without aura, not intractable, with status migrainosus
CPT/HCPCS: 36415; 80053; 80061; 83036; 84443

== ENCOUNTER → 2023-06-01 11:44 | Outpatient (CLI) | payer BC, MEDICAID, SELFPAY ==
--- NOTE | ~2023-06-01 | XR_ITS ---
XR abdomen/kub 1V 06/01/2023 12:15 INDICATION: Kidney stones TECHNIQUE: KUB COMPARISON: Comparison to multiple prior studies sequentially, with oldest reviewed study dated 01/2020. FINDINGS: Bowel gas pattern is normal. Large amount of retained fecal material in the colon. There is no evidence of free air, mass, organomegaly, ascites or obstruction. No abnormal calculi are seen. The bones appear intact. Mild osteoarthritis of the hips. IMPRESSION: 1: No acute abdominal abnormality identified. Reviewed, dictated and finalized at location A.
--- NOTE | ~2023-06-01 | US_ITS ---
US retroperitoneal comp 06/01/2023 12:06 Procedure: Realtime transabdominal ultrasound of the kidneys and bladder. Indication: History of renal stone Comparison: Ultrasound dated 05/30/2021 Findings: Renal echotexture is normal bilaterally without hydronephrosis, contour deforming mass or r enal calculus. The right kidney measures cm and left kidney measures cm. Bladder within normal limit s. Impression: 1: Unremarkable renal ultrasound. No stones, masses or hydronephrosis. Reviewed, dictated and finalized at location A. Impression: 1: Unremarkable renal ultrasound. No stones, masses or hydronephrosis.
== END ==
PROVIDERS: PCP Family Medicine Adolescent Medicine; Referring Provider Obstetrics & Gynecology Gynecology; Visit Provider Urology
DX: Z87.442 Personal history of urinary calculi (principal)
CPT/HCPCS: 74018; 76770

== ENCOUNTER 2023-12-16 14:28 | Outpatient (CLI) | payer BC, MEDICAID, SELFPAY ==
[2023-12-16 15:16] LABS: Appearance Urine Cloudy (Clear); Bacteria Urine 1+ /hpf; Bilirubin Urine Negative (Negative); Blood Urine Negative (Negative); Color Urine Yellow (Yellow); Glucose Urine UA Negative (Negative); Ketones Urine Negative (Negative); Leukocyte Esterase Ur 2+ LEU/UL (Negative); Nitrate Urine Negative (Negative); Non Pathogenic Casts 0-2; Protein Urine Negative (Negative); RBC Urine 0-2 /hpf (0-2); Specific Grav Ur 1.017 (1.001-1.035); Squamous Epithelial Cell Urine None seen /hpf (Few); Urobilinogen Urine 0.2 mg/dL (<2.0); WBC Urine 21-50 /hpf; pH Urine 6.5 (5.0-9.0)
[2023-12-16 15:18] LABS: Add Urine Microscopic? YES
== END 2023-12-16 14:29 | disposition home or self-care (01) ==
LOC: ANHLAB 14:29
PROVIDERS: PCP Family Medicine Adolescent Medicine; Visit Provider Nurse Practitioner Family
DX: R82.90 Unspecified abnormal findings in urine (principal)
CPT/HCPCS: 81001; 87086

== ENCOUNTER 2023-12-23 16:12 | Outpatient (CLI) | payer BC, MEDICAID, SELFPAY ==
--- NOTE | ~2023-12-23 | XR_ITS ---
EXAMINATION: XR wrist LT 2V DATE: 12/23/2023 16:24 INDICATION: Left wrist pain 4 days post fall. TECHNIQUE: Posteroanterior and lateral views of the left wrist were obtained. COMPARISON: none FINDINGS: Alignment is normal. No fracture. Mild osteoarthritis at the triscaphe joint. Minimal joint space are unremarkable. Soft tissues are unremarkable. IMPRESSION: 1. 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 No acute osseous abnormality. Reviewed, dictated and finalized at location A. [employer] PROFESSIONAL IMPRESSION: 1. 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 No acute osseous abnormalit y.
== END 2023-12-23 16:13 | disposition home or self-care (01) ==
LOC: ANHIMG 16:13
PROVIDERS: PCP Family Medicine Adolescent Medicine; Visit Provider Nurse Practitioner Family
DX: M19.032 Primary osteoarthritis, left wrist (principal)
CPT/HCPCS: 73100

== ENCOUNTER 2024-04-14 16:04 | Outpatient (CLI) | payer OTHER, MEDICAID, SELFPAY ==
[2024-04-14 17:23] LABS: Hematocrit 36.4 % (37.0-47.0); Hemoglobin 11.7 g/dL (12.0-15.0); Mean Corpuscular HGB Conc 32.1 g/dl (32-36); Mean Corpuscular Hemoglobin 31.3 pg (26-34); Mean Corpuscular Volume 97.3 fl (80-100); Mean Platelet Volume 10.5 fl (7.4-10.4); Platelet Count Result 294 k/mm3 (150-375); Red Blood Count 3.74 M/mm3 (4.2-5.4); Red Cell Distribution Width 13.3 % (11.5-14.5); White Blood Count 6.3 K/mm3 (4.5-10.0)
[2024-04-14 17:35] LABS: Alanine Aminotransferase 31 U/L (6-35); Albumin Level 4.6 g/dL (3.5-5.1); Alkaline Phosphatase 67 U/L (38-126); Anion Gap 10 mmol/L (4-12); Aspartate Amino Transferase 29 U/L (14-36); Bilirubin,Total 0.4 mg/dL (0.2-1.3); Blood Urea Nitrogen 23 mg/dL (7-17); Calcium 9.4 mg/dL (8.4-10.2); Carbon Dioxide 21 mmol/L (22-30); Chloride 112 mmol/L (98-107); Cholesterol 162 mg/dL (0-200); Estimated Glomerular Filt Rate 39; Glucose 116 mg/dL (65-110); HDL Direct 40 mg/dL; Potassium 3.3 mmol/L (3.4-5.0); Sodium 143 mmol/L (137-145); Triglycerides 279 mg/dL (<150)
[2024-04-14 17:40] LABS: Hemoglobin A1C 5.7 % (<5.7)
[2024-04-14 17:46] LABS: LDL Cholesterol Direct 74 mg/dL
[2024-04-14 17:58] LABS: Vitamin D 25 Hydroxy 62.6 ng/mL
[2024-04-14 18:12] LABS: Thyroid Stimulating Hormone Reflex 0.645 uIU/mL (0.465-4.68)
== END 2024-04-14 16:05 | disposition home or self-care (01) ==
PROVIDERS: PCP Family Medicine Adolescent Medicine; Visit Provider Nurse Practitioner Family
DX: R73.03 Prediabetes (principal); E55.9 Vitamin D deficiency, unspecified; E78.2 Mixed hyperlipidemia; G43.001 Migraine without aura, not intractable, with status migrainosus; F41.9 Anxiety disorder, unspecified; R53.83 Other fatigue; F32.9 Major depressive disorder, single episode, unspecified
CPT/HCPCS: 36415; 80053; 80061; 82306; 82607; 83036; 84443; 85027

== ENCOUNTER 2024-06-22 07:17 | Outpatient (CLI) | payer OTHER, MEDICAID, SELFPAY ==
--- NOTE | ~2024-06-22 | MM_ITS ---
EXAMINATION: MM screening maxi BI w lydia HISTORY: Screening TECHNIQUE: Craniocaudal and mediolateral oblique 3-D tomosynthesis images were obtained and synthetic 2-D images were generated. CAD analysis was submitted and interpreted. COMPARISON: Comparison to multiple prior studies sequentially, with oldest reviewed study dated 07/2021. BREAST PARENCHYMAL COMPOSITION: Dense: The breasts are extremely dense, which lowers the sensitivity of mammography. FINDINGS: There is architectural distortion in the upper outer quadrant of the right breast, consiste nt with previous lumpectomy. There are no new masses, calcifications or architectural distortion in e ither breast to suggest malignancy. IMPRESSION: 1. No mammographic evidence of malignancy. 2. Recommend routine screening mammography in one year. BI-RADS Category 2: Benign finding(s). Reviewed, dictated and finalized at location B.
== END 2024-06-22 07:18 ==
LOC: MICIMG 07:21
PROVIDERS: PCP Family Medicine Adolescent Medicine; Visit Provider Nurse Practitioner
DX: Z12.31 Encounter for screening mammogram for malignant neoplasm of breast (principal)
CPT/HCPCS: 77063; 77067

== ENCOUNTER 2024-09-16 14:23 | Outpatient (CLI) | payer OTHER, MEDICAID, SELFPAY ==
[2024-09-16 15:26] LABS: Hematocrit 37.8 % (37.0-47.0); Hemoglobin 12.1 g/dL (12.0-15.0); Mean Corpuscular Hemoglobin 30.3 pg (26-34); Mean Corpuscular Volume 94.7 fl (80-100); Mean Platelet Volume 10.3 fl (7.4-10.4); Platelet Count Result 254 k/mm3 (150-375); Red Blood Count 3.99 M/mm3 (4.2-5.4); Red Cell Distribution Width 12.6 % (11.5-14.5); White Blood Count 6.1 K/mm3 (4.5-10.0)
[2024-09-16 16:18] LABS: HIV 1/2 Ab P24 Ag Result Negative (Negative)
[2024-09-16 16:47] LABS: Free T4 Free Thyroxine 1.26 ng/mL (0.78-2.19); Vitamin D 25 Hydroxy 49.8 ng/mL
[2024-09-16 17:32] LABS: Hepatitis B Surface Antigen Negative (Negative)
[2024-09-16 17:38] LABS: HAV RESULT Negative (Negative); Hepatitis B Core IgM Result Negative (Negative)
[2024-09-16 17:50] LABS: Hepatitis C Virus Antibody Negative (Negative)
[2024-09-16 17:54] LABS: Alanine Aminotransferase 13 U/L (6-35); Albumin Level 4.3 g/dL (3.5-5.1); Alkaline Phosphatase 65 U/L (38-126); Anion Gap 9 mmol/L (4-12); Aspartate Amino Transferase 20 U/L (14-36); Bilirubin,Total 0.4 mg/dL (0.2-1.3); Blood Urea Nitrogen 15 mg/dL (7-17); Calcium 9.4 mg/dL (8.4-10.2); Carbon Dioxide 30 mmol/L (22-30); Chloride 101 mmol/L (98-107); Cholesterol 166 mg/dL (0-200); Estimated Glomerular Filt Rate > 60; Glucose 88 mg/dL (65-110); HDL Direct 36 mg/dL; Sodium 140 mmol/L (137-145); Triglycerides 142 mg/dL (<150)
[2024-09-16 18:05] LABS: LDL Cholesterol Direct 82 mg/dL
[2024-09-16 18:52] LABS: Hemoglobin A1C 5.4 % (<5.7)
[2024-09-17 07:38] LABS: Rapid Plasma Reagin Non-Reactive (NonReactive)
== END 2024-09-16 14:24 | disposition home or self-care (01) ==
PROVIDERS: PCP Family Medicine Adolescent Medicine; Visit Provider Obstetrics & Gynecology Gynecology
DX: E55.9 Vitamin D deficiency, unspecified (principal); Z11.3 Encounter for screening for infections with a predominantly sexual mode of transmission; Z01.419 Encounter for gynecological examination (general) (routine) without abnormal findings
CPT/HCPCS: 36415; 80053; 80061; 80074; 82306; 82607; 83036; 84439; 84443; 85027; 86592; 86703; G0432

== ENCOUNTER 2025-01-05 13:57 | Outpatient (CLI) | payer OTHER, MEDICAID, SELFPAY ==
--- NOTE | ~2025-01-05 | DEXA_ITS ---
Bone Density Report Name: NESSA MCINTOSH Age: 59 Sex: Female Ethnicity: White Date of : 1965 Indication: postmenopausal; screening for osteoporosis; height loss; hysterectomy; Referring Provider: Tyler, Jazmyne Study: Bone densitometry was performed. Exam Date: January 05, 2025 Accession number: [id number] Bone Density: Region BMD T-score Z-score Classification AP Spine(L1-L4) 1.012 -0.3 1.0 Normal Femoral Neck (Left) 0.550 -2.7 -1.5 Osteoporosis Total Hip (Left) 0.778 -1.3 -0.5 Osteopenia Femoral Neck (Right) 0.575 -2.5 -1.2 Osteoporosis Total Hip (Right) 0.696 -2.0 -1.1 Osteopenia Femoral Neck Mean 0.563 -2.6 -1.4 Osteoporosis Total Hip Mean 0.737 -1.7 -0.8 Osteopenia World Health Organization criteria for BMD impression classify patients as: Normal (T-score at or above -1.0), Osteopenia (T-score between -1.0 and -2.5), or Osteoporosis (T-score at or below -2.5). Clinical Information Provided by Patient: Has used the following medications: Vitamin D, Calcium Has the following medical conditions: Hysterectomy Patient maximum height was 69 Menopause Age: 32 No regular weight bearing exercise Does not regularly consume dairy products Onset of menses at age 13 Number of children 3 Impression: The patient has osteoporosis, based on the Left Femoral Neck T-score. Discussion: INCREASED RISK OF FRACTURE. BONE DENSITY IS UNDESIRABLY LOW AT ONE OR MORE SKELETAL SITES, CONSISTENT WITH POSTMENOPAUSAL OSTEOPOROSIS. This patient's lowest T-score meets the World Health Organization's (WHO) criteria for osteoporosis at one or more sites (T-score -2.5 or below). In untreated patients, the risk of osteoporotic fracture increases approximately two-fold for each 1.0 SD decrease in T-score. Low bone density is not the only risk factor for fracture; also consider factors such as patient's age, frailty or poor health, risk of falling, risk of injury, previous osteoporotic fracture, family history of osteoporosis, cigarette smoking, low body weight, etc. Not everyone with low bone mineral density has osteoporosis; osteomalacia and other metabolic bone disorders should also be considered. Patients who have osteoporosis should be evaluated for specific diseases and conditions (secondary causes) that may cause or contribute to bone loss. The [place] Association of Clinical Endocrinologists (AACE) and National Osteoporosis Foundation (NOF) recommend pharmacologic intervention for all postmenopausal women whose T-score is in this range. The patient should follow a healthful lifestyle (good nutrition with adequate calcium and vitamin D, and appropriate weight-bearing exercise). Follow-Up: Consider a repeat BMD and Vertebral Fracture Assessment (VFA) exam in 2 years or sooner if medically necessary, to reassess this patient's status. Reported by: SAIDA on 01/05/2025 2:19:00 PM. Reviewed, dictated and finalized at location A.
--- OUTSIDE RECORDS SUMMARY | 2025-01-05 16:12 | XMS_ITS | Encounter Summary ---
Author Organization [facility] Address [address] [place] [address] Care Team Providers Care Nutrition Educator Name Role Phone Ariane Carias MD Primary Care Provider [phone]- [phone] Ariane Carias MD Unavailable [phone] Encounter Details Date Type Department Care Team (Late st Contact Info) Description 06/15/[address] [facility] [place] [address] Maritza Herbert MD [address] [facility] [place] [address] Social History Tobacco Use Types Packs/Day Years Used Date Smoking Tobacco: Every Day Cigarettes 0.3 20 Electronic Cigarettes Smokeless Tobacco: Never Comments:provider to advise, smokes off and on, used to smoke up to 1 ppd, vapes daily Alcohol Use Standard Drinks/Week Comments Not Currently 0 (1 standard drink = 0.6 oz pur e alcohol) PHQ-2 Answer Date Recorded PHQ-2 Score - If the patient scores above 3, please move on to questions 3-9 0 10/04/2020 Comments No Sex and Gender Information Value Date Recorded Sex Assigned at Not on file Legal Sex Female 9:49 AM CDT Gender Identity Not on file Sexual Orientation Not on file documented as of this encounter Functional Status * RETIRED Are you deaf or do you have serious difficulty hearing Answer Date of Assessment Author Status No 08/17/2020 12:34 AM CDT Acti ve * RETIRED Are you blind or do you have serious difficulty seeing, even when wearing glasses? Answer Date of Assessment Author Status No 08/17/2020 12:34 AM CDT Acti ve * Do you have serious difficulty walking or climbing stairs? Answer Date of Assessment Author Status No 08/17/2020 12:34 AM CDT Sarah Arroyo RN Active * Do you have difficulty dressing or bathing? Answer Date of Assessment Author Status No 08/17/2020 12:34 AM CDT Sarah Arroyo RN Active * Because of a physical, mental, or emotional condition, do you have difficulty doing errands alone such as visiting a doctor's office or shopping? Answer Date of Assessment Author Status No 08/17/2020 12:34 AM Sarah Rivers RN Active documented as of this encounter Mental Status * Because of a physical, mental, or emotional condition, do you have serious difficulty concentrating, remembering, or making decisions? Answer Entry Date Author Status No 08/17/2020 12:34 AM Sarah Rivers RN Active documented in this encounter H&P Notes * Maritza Herbert MD - 06/15/2023 11:58 AM CDT Attending Provider: No att. providers found PCP: ARIANE CARIAS MD Daisy Benz is an 58-year-old female. Reason for Admission: * No active hospital problems. * HPI: She is had a previous stress incontinence operation by another physician. She has continued stress incontinence as well as a small area of mesh exposure in the vagina Past Medical History: Diagnosis Date Anxiety and depression Back pain CKD (chronic kidney disease), stage II Hypertension Kidney stone 9.1 ml kidney stone found incidentally when had CT of lower spine Migraine Allergies: Allergies Allergen Reactions Codeine Itching large doses of codeine Social History Tobacco Use Smoking status: Every Day Packs/day: 0.25 Years: 20.00 Pack years: 5.00 Types: Electronic Cigarettes, Cigarettes Smokeless tobacco: Never Tobacco comments: provider to advise, smokes off and on, used to smoke up to 1 ppd, vapes daily Substance Use Topics Alcohol use: Not Currently Past Surgical History: Procedure Laterality Date APPENDECTOMY 1988 ruptured appendix BACK SURGERY 2015 disk repair, lumbar spine BREAST BIOPSY SECTION 1994 HYSTERECTOMY LAMINECTOMY,LUMBAR 08/2020 L5 laminectomy and left L5-S1 microdiscectomy Family History Problem Relation Name Age of Onset Diabetes Father Cancer Brother Liver Disease Brother [place] Brother chemo caused massive [place] Travel Exposure: Current Outpatient Medications on File Prior to Visit Medication Sig buPROPion XL 300 MG 24 hr tablet Take 300 mg by mouth every morning. cyclobenzaprine 10 MG tablet Take 1 tablet (10 mg total) by mouth 3 (three) times daily as needed for Muscle Spasms. HYDROcodone-acetaminophen 5-325 MG tablet Take 1-1.5 tablets by mouth every 4 (four) hours as needed for Pain. Takes this for severe back pain, has not used recently LORazepam 1 MG tablet Take 1 mg by mouth daily. propranolol LA 80 MG 24 hr capsule Take 80 mg by mouth daily. SUMAtriptan 100 MG tablet TAKE 1 2 (ONE HALF) TO 1 TABLET BY MOUTH ONCE DAILY NEEDED topiramate 50 MG Tab Take 200 mg by mouth 4 (four) times daily. venlafaxine XR 75 MG 24 hr capsule Take 75 mg by mouth daily. zolpidem 10 MG tablet Take 10 mg by mouth nightly as needed for Sleep. No current facility-administered medications on file prior to visit. Last menstrual period 10/17/2000. ROS negative Physical Exam Small area of mesh exposure left sulcus Fixed urethra No acute distress Normal breathing Alert oriented x3 Assessment: Vaginal mesh exposure Intrinsic sphincter deficiency Plan: I will excise the small area of vaginal mesh exposure. She understands risks of bleeding, infection, incomplete mesh exposure, recurrent mesh exposure. I will also inject a bulking agent for her intrinsic sphincter deficiency. She understands risks of bleeding, infection, need for repeat procedures, urinary retention. She she agrees to proceed MARITZA HERBERT MD 06/15/2023 documented in this encounter Plan of Treatment Not on file documented as of this encounter Goals Goal Patient Goal Type Associated Problems Recent Progress Patient-Stated? Author Monitor - able to maintain pain control General No Danitza Finley RN documented as of this encounter Visit Diagnoses Not on filedocumented in this encounter Care Teams Nutrition Educator Relationship Specialty Start Date End Date Ariane Carias MD [address] [address] PCP - General FAMILY PRACTICE 08/16/20 Ariane Carias MD [address] [address] 07/12/20 documented as of this encounter
--- OUTSIDE RECORDS SUMMARY | 2025-01-05 16:12 | XMS_ITS | Clinical Summary ---
Author Organization [facility] Address [address] [place] [address] Care Team Providers Care Transformer Builder Name Role Phone Jamari Carias MD Primary Care Provider [phone] Jamari Carias MD Unavailable [phone] Allergies Active Allergy Reactions Criticality Noted Date Comments Codeine Itching 08/16/2020 large doses of codeine Medications zolpidem 10 MG tablet Take 1 tablet (10 mg total) by mouth nightly as needed for Sleep. 0 Active venlafaxine XR 75 MG 24 hr capsule Take 1 capsule (75 mg total) by mouth daily. Active topiramate 50 MG Tab Take 3 tablets (150 mg total) by mouth 2 (two) times daily. Active buPROPion XL 300 MG 24 hr tablet Take 1 tablet (300 mg total) by mouth every morning. Active propranolol LA 80 MG 24 hr capsule Take 1 capsule (80 mg total) by mouth daily. Active SUMAtriptan 100 MG tablet TAKE 1 2 (ONE HALF) TO 1 TABLET BY MOUTH ONCE DAILY NEEDED 0 Active LORazepam 1 MG tablet Take 1 tablet (1 mg total) by mouth daily. Active fenofibrate 160 MG tablet Take 1 tablet (160 mg total) by mouth daily. Active atorvastatin (LIPITOR) 40 MG tablet Take 1 tablet (40 mg total) by mouth daily. Active anastrozole (ARIMIDEX) 1 MG tablet Take 1 tablet by mouth daily. Active alendronate (FOSAMAX) 70 MG tablet Take 1 tablet (70 mg total) by mouth every 7 days. Saturdays Active loratadine (CLARITIN) 10 MG tablet Take 1 tablet (10 mg total) by mouth daily. Active Vitamin D3 125 mcg Tab Take 1 tablet (125 mcg total) by mouth daily. Active calcium carbonate (OS-ESTELA) 1500 (600 Ca) MG tablet Take 1 tablet (1,500 mg total) by mouth 2 (two) times daily with meals. Active biotin 300 MCG Tab Take 1 tablet (300 mcg total) by mouth daily. Active Active Problems Problem Noted Date Diagnosed Date S/P lumbar laminectomy 08/25/2020 S/P lumbar discectomy 08/25/2020 Lumbar disc herniation 08/16/2020 Immunizations Name Administration Dates Next Due Fluzone 6 Months+ Quad (0.5 mL Prefilled Syringe) 08/19/2020(Deferred: Other - per Smith, no flu shot until 4 weeks after discharge) Family History Medical History Relation Comments Cancer Brother Liver Disease Brother [place] Brother chemo caused mas sive [place] Diabetes Father Relation Status Comments Brother of [place], had liver cancer Daughter 1 Alive Daughter 2 Alive Daughter 3 Alive Father Alive Mother Alive Social History Tobacco Use Types Packs/Day Years Used Date Smoking Tobacco: Every Day Cigarettes 0.3 20 Started: 11/2002 ; Last attempted to quit: 11/2022 Electronic Cigarettes Smokeless Tobacco: Never Tobacco Cessation:Ready to Q uit: Yes; Counseling Given: Yes Comments:provider to advise, used to smoke up to 1 ppd, [...] on file Sexual Orientation Not on file Last Filed Vital Signs Vital Sign Reading Time Taken Comments Blood Pressure 111/64 06/27/2023 11:59 AM CDT Pulse 73 06/27/2023 11:59 AM CDT Temperature 36.7 C (98 F) 06/27/2023 11:59 AM CDT Respiratory Rate 16 06/27/2023 11:59 AM CDT Oxygen Saturation 98% 06/27/2023 11:59 AM CDT Inhaled Oxygen Concentration - - Weight 83.5 kg (184 lb 1.4 oz) 06/27/2023 8:44 A M CDT Height 175.3 cm (5' 9 ) 06/27/2023 8:44 AM CDT Body Mass Index 27.18 06/27/2023 8:44 AM CDT Plan of Treatment Health Maintenance Due Date Last Done Comments Colorectal Cancer Screening Colonoscopy (10 Years) 1966 Annual Physical 1969 Pneumococcal Vaccine: Pediat rics (0 to 5 Years) and At-Risk Patients (6 to 64 Years) (1 of 2 - PCV) 1972 PHQ-2 (Physician [place]) 1978 Hepatitis C 1984 DTaP, Tdap and Td Vaccines ( 1 - Tdap) 1985 Hepatitis B Vaccines (1 of 3 - 19+ 3-dose series) 1985 Mammogram Screening 2006 Zoster Vaccines (1 of 2) 2016 COVID-19 Vaccine ( - 2023-2 5 season) 2024 Influenza Adult (#1) 2024 09/19/2020 PHQ-2 (Physician [place]) 11/11/2024 Meningococcal B Vaccine Aged Out No l onger eligible based on patient's age to complete this topic Meningococcal Vaccine Aged Out No nir jacquelyn eligible based on patient's age to complete this topic RSV Immunizations Under 20 Months Aged Out No longer eligible based on patient's age to complete this topic Goals Goal Patient Goal Type Associated Problems Recent Progress Patient-Stated? Author Monitor - able to maintain pain control General No Danitza Finley, RN Medical Devices Implanted Type Area Bag Turner Device Identifier Shelf Expiration Date Model / Serial / Lot Patch Dural 1x1in Duramatrix-Onla y Plus Collagen Regeneration Membrane Sterile - [id number] Implanted:Qty: 1 on 08/18/2020 by Jonnie Mtz MD at [facility] Spine Lumbar LEE CRANIOMAXILLOFACIAL - [employer] 10/10/2022 [id number] / / [id number] Bulkamid Urethra Bulking Agent - [id number] Implanted:Qty: 1 on 06/27/2023 by Sumit Wlof MD at [facility] N/A: [employer] 01/08/2026 [id number] / / [id number] Insurance MEDICAID DEPT OF [address] Advance Directives Documents on File Type Date Recorded Patient Cable Placer Expl anation Advance Directives and Living Will 10/24/2020 2:13 PM 12/16/2014 LIVING VIKI L Advance Directives and Living Will 12/21/2014 ADVANCE DIRECTIVE * Full Code (Latest Code Status on File) Date Activated Date Inactivated Comments 08/18/2020 12:12 PM 08/19/2020 4:28 PM * Full Code Date Activated Date Inactivated Comments 08/16/2020 10:59 PM 08/18/2020 12:12 PM Care Teams Transformer Builder Relationship Specialty Start Date End Date Jamari Carias MD [address] [address] PCP - General FAMILY PRACTICE 08/16/20 Jamari Carias MD [address] [address] 07/12/20
--- OUTSIDE RECORDS SUMMARY | 2025-01-05 16:12 | XMS_ITS | Clinical Summary ---
Author Organization [facility] Address [address] [place] [address] Care Team Providers Care Director Of Marketing Name Role Phone Jamari Carias MD Primary Care Provider [phone] Allergies Active Allergy Reactions Criticality Noted Date Comments Codeine Itching Low 08/16/2020 large doses of codeine Medications buPROPion HCL (WELLBUTRIN XL) 300 mg Extended Release 24 hour tablet Take 300 mg by mouth. 0 Active LORazepam (ATIVAN) 1 mg tablet Take 1 mg by mouth daily. 0 Active venlafaxine (EFFEXOR XR) 75 mg Extended Release 24 hour capsule Take 75 mg by mouth daily. 0 Active propranoloL (INDERAL LA) 80 mg Long Acting 24 hour capsule Take 80 mg by mouth daily. 0 Active HYDROcodone-nathaly taminophen (NORCO) 5-325 mg tablet Take 1-1.5 Tablets by mouth every 4 hours as needed. 0 Active SUMAtriptan (IMITREX) 100 mg tablet TAKE 1 2 (ONE HALF) TO 1 TABLET BY MOUTH ONCE DAILY NEEDED 0 Active atorvastatin (LIPITOR) 40 mg tablet Take 40 mg by mouth daily. Active alendronate (FOSAMAX) 70 mg tablet Take 70 mg by mouth every 7 days. Active biotin-silicon wvsh-I-avmtawpe 3,000 mcg -100 mg-50 mg Tablet Sustained Release Take 300 mcg by mouth daily. Active calcium as carbonate (CALTRATE) 1,500 mg (600 mg elemental) Tablet Take 1,500 mg by mouth 2 times daily. Active fenofibrate (LOFIBRA) 160 mg Tablet Take 160 mg by mouth daily. Active loratadine (CLARITIN) 10 mg tablet Take 10 mg by mouth daily. Active cholecalciferol , Vitamin D3, 125 mcg (5,000 unit) Capsule Take 5,000 Units by mouth daily. Active zolpidem (AMBIEN) 10 mg tablet Take 10 mg by mouth nightly as needed for Insomnia. Active erenumab-aooe (Aimovig Autoinjector) 70 mg/mL Auto-Injector Inject 70 mg by subcutaneous injection one time only. Active anastrozole (Arimidex) 1 mg tabletIndicatio ns:Malignant neoplasm of upper-outer quadrant of right breast in female, estrogen receptor positive (CMS/HCC) Take 1 Tablet (1 mg) by mouth daily. 90 Tablet 3 4 Active Active Problems Problem Noted Date Diagnosed Date Malignant neoplasm of upper- outer quadrant of right breast in female, estrogen receptor positive 06/15/2021 Encounters Date Type Department Care Team Description 12/30/2024 External Device Data ST[facility] ABSTRACTION Provider, Abstract 12/29/2024 External Device Data [facility] ABSTRACTION Provider, Abstract 12/08/2024 External Device Data [facility] ABSTRACTION Provider, Abstract 12/02/2024 External Device Data [facility] ABSTRACTION Provider, Abstract 12/02/2024 External Device Data [facility] ABSTRACTION Provider, Abstract 11/25/2024 External Device Data [facility] ABSTRACTION Provider, Abstract 11/17/2024 External Device Data [facility] ABSTRACTION Provider, Abstract 10/13/2024 External Device Data [facility] ABSTRACTION Provider, Abstract from Last 3 Months Family History Medical History Relation Name Comments Cancer Brother 1 Healthy Daughter 1 Healthy Daughter 2 Healthy Daughter 3 Acute lymphoblastic leukemia Father Acute myelogenous leukemia Father Diabetes Father Relation Name Status Comments Brother 1 Brother 2 Alive Daughter 1 Alive Daughter 2 Alive Daughter 3 Alive Father Alive Mother Alive Sister 1 Alive Sister 2 Alive Social History Tobacco Use Types Packs/Day Years Used Date Smoking Tobacco: Every Day Cigarettes 0.3 30.6 Started: 06/16/1994 Smokeless Tobacco: Never Alcohol Use Standard Drinks/Week Comments Yes 0 (1 standard drink = 0.6 oz pur e alcohol) Comments No Sex and Gender Information Value Date Recorded Sex Assigned at Not on file Legal Sex Female 5:39 AM GAMING HOST Gender Identity Not on file Sexual Orientation Not on file Last Filed Vital Signs Vital Sign Reading Time Taken Comments Blood Pressure 113/71 06/16/2024 2:44 PM CDT Pulse 79 06/16/2024 2:44 PM CDT Temperature 36.8 C (98.2 F) 06/16/2024 2:44 PM CDT Respiratory Rate 18 06/16/2024 2:44 PM CDT Oxygen Saturation 95% 06/16/2024 2:44 PM CDT Inhaled Oxygen Concentration - - Weight 75.8 kg (167 lb) 06/16/2024 2:44 PM CDT Height 172.7 cm (5' 8 ) 06/16/2024 2:44 PM CDT Body Mass Index 25.39 06/16/2024 2:44 PM CDT Plan of Treatment Upcoming Encounters Date Type Department Care Team (Late st Contact Info) Description 03/15/2025 3:30 PM CDT Office Visit [facility] Oncology and Hematology [facility] [address] [facility] [address] [place] [address] Dusty Kauffman MD [address] [facility] [address] [place] [address] Health Maintenance Due Date Last Done Comments Pre-Diabetes and Diabetes Screening 1966 DTAP/TDAP/TD VACCINES (1 - Tdap) 1985 HEPATITIS B VACCINES (1 of 3 - 19+ 3-dose series) 05/11 CERVICAL CANCER SCREENING 1996 BREAST CANCER SCREENING 2006 COLORECTAL SCREENING 2011 Colorectal Cancer Screening 2011 FIT-DNA Q 3 years 2011 FIT/FOBT Q 1 year 2011 Flex Sig/CT Colonography Q 5 years 2011 ZOSTER VACCINE (1 of 2) 2016 INFLUENZA VACCINE (#1) 2024 Preventative Visit- Commercial 11/11/2024 Insurance BCBS BLUE ACCESS/TRUE BLUE PPO [facility] BLUE ACCESS/TRUE BLUE PPO [employer] [facility] [id number] MEDICAID [place] Care Teams Director Of Marketing Relationship Specialty Start Date End Date Jamari Carias MD [address] [address] PCP - General Family Practice 06/15/21
--- OUTSIDE RECORDS SUMMARY | 2025-01-05 16:12 | XMS_ITS | Encounter Summary ---
Author Organization [facility] Address [address] [place] [address] Care Team Providers Care Dough Puncher Name Role Phone Jamari Carias MD Primary Care Provider [phone]- [phone] Encounter Details Date Type Department Care Team (Late Contact Info) Description 06/21/2021 Chart Note [facility] Radiation Therapy [address] [place] [address] [place] [address] [place] [address] Social History Tobacco Use Types Packs/Day Years Used Date Smoking Tobacco: Never Smokeless Tobacco: Never Alcohol Use Standard Drinks/Week Comments Yes 0 (1 standard drink = 0.6 oz pur e alcohol) Comments No Sex and Gender Information Value Date Recorded Sex Assigned at Not on file Legal Sex Female 5:39 AM AUDIO VISUAL COORDINATOR Gender Identity Not on file Sexual Orientation Not on file COVID-19 Exposure Response Date Recorded In the last month, have you been in contact with someone who was confirmed or suspected to have Coronavirus / COVID-19? No / Unsure 06/15/2021 10:35 AM CDT documented as of this encounter Plan of Treatment Upcoming Encounters Date Type Department Care Team (Late Contact Info) Description 03/15/2025 3:30 PM CDT Office Visit [facility] Oncology and Hematology - [facility] [address] [facility] [address] [place] [address] Dusty Kauffman MD [address] [facility] [address] [place] [address] documented as of this encounter Visit Diagnoses Not on filedocumented in this encounter Care Teams Dough Puncher Relationship Specialty Start Date End Date Jamari Carias MD [address] [address] PCP - General Family Practice 06/15/21 documented as of this encounter
== END 2025-01-05 13:58 | disposition home or self-care (01) ==
LOC: CHSIMG 14:02
PROVIDERS: PCP Family Medicine Adolescent Medicine; Visit Provider Nurse Practitioner
DX: Z78.0 Asymptomatic menopausal state (principal); M85.89 Other specified disorders of bone density and structure, multiple sites; M81.0 Age-related osteoporosis without current pathological fracture
CPT/HCPCS: 77080

== ENCOUNTER 2025-02-09 13:36 | Outpatient (CLI) | payer OTHER, MEDICAID, SELFPAY ==
[2025-02-09 13:51] LABS: Basophils Absolute Auto 0.1 K/mm3 (0.0-0.1); Basophils Percent Auto 0.9 % (0.2-1.2); Eosinophils Absolute Auto 0.2 K/mm3 (0-0.3); Eosinophils Percent Auto 2.6 % (0-4.4); Hematocrit 37.4 % (37.0-47.0); Hemoglobin 12.3 g/dL (12.0-15.0); Immature Granulocyte Absolute 0.03 K/mm3 (0.00-0.031); Immature Granulocyte Percent A 0.5 % (0-0.5); Lymphocytes Absolute Auto 2.64 K/mm3 (0.9-3.2); Mean Corpuscular HGB Conc 32.9 g/dl (32-36); Mean Corpuscular Volume 94.2 fl (80-100); Mean Platelet Volume 9.5 fl (7.4-10.4); Monocytes Absolute Auto 0.6 K/mm3 (0.1-0.6); Monocytes Percent Auto 8.5 % (2.6-8.5); Neutrophils Absolute Auto 3.1 K/mm3 (1.3-6.7); Neutrophils Percent Auto 47.5 % (45.5-73.1); Platelet Count Result 221 k/mm3 (150-375); Red Blood Count 3.97 M/mm3 (4.2-5.4); Red Cell Distribution Width 12.8 % (11.5-14.5); White Blood Count 6.6 K/mm3 (4.5-10.0)
--- OUTSIDE RECORDS SUMMARY | 2025-02-09 14:48 | XMS_ITS | Encounter Summary ---
Author Organization [facility] Address [address] [place] [address] Care Team Providers Care Plastic Sheets Finishing Supervisor Name Role Phone Jamari Carias MD Primary Care Provider [phone]- [phone] Encounter Details Date Type Department Care Team (Late Contact Info) Description 06/21/2021 Chart Note [facility] Radiation Therapy [address] [place] [address] [place] [address] [place] [address] Social History Tobacco Use Types Packs/Day Years Used Date Smoking Tobacco: Never Smokeless Tobacco: Never Alcohol Use Standard Drinks/Week Comments Yes 0 (1 standard drink = 0.6 oz pur e alcohol) Comments No Sex and Gender Information Value Date Recorded Sex Assigned at Not on file Legal Sex Female 5:39 AM HYDROGRAPHER Gender Identity Not on file Sexual Orientation [...] Description 03/15/2025 3:30 PM CDT Office Visit [facility] and [facility]ematology - [place] [address] [facility] [address] [place] [address] Dusty Kauffman MD [address] [phone] documented as of this encounter Visit Diagnoses Not on filedocumented in this encounter Care Teams Plastic Sheets Finishing Supervisor Relationship Specialty Start Date End Date Jamari Carias MD PCP - General Family Practice 06/15/21 documented as of this encounter
--- OUTSIDE RECORDS SUMMARY | 2025-02-09 14:48 | XMS_ITS | Clinical Summary ---
Author Organization [facility] Administrative Offices Address [address] [place] [address] Care Team Providers Care Biochemistry Technologist Name Role Phone Jamari Carias MD Primary Care Provider +1- [phone] Allergies Active Allergy Reactions Criticality Noted Date [...] by mouth every 7 days. Active biotin-silicon dbbk-R-fnvqosib 3,000 mcg -100 mg-50 mg Tablet Sustained [...] Encounters Date Type Department Care Team Description 01/19/2025 External Device Data STL ABSTRACTION Provider, Abstract 01/19/2025 External Device Data STL ABSTRACTION Provider, Abstract 01/12/2025 External Device Data STL ABSTRACTION Provider, Abstract 12/30/2024 External Device Data STL ABSTRACTION Provider, [...] Date Smoking Tobacco: Every Day Cigarettes 0.3 30.7 Started: 06/16/1994 Smokeless Tobacco: Never Alcohol Use Standard Drinks/Week Comments Yes 0 (1 standard drink = 0.6 oz pur e alcohol) Comments No Sex and Gender Information Value Date Recorded Sex Assigned at Not on file 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 [address] [place] [address] Health Maintenance Due Date Last Done Comments Pre-Diabetes and Diabetes Screening 1966 DTAP/TDAP/TD VACCINES (1 - Tdap) 1985 HEPATITIS B VACCINES (1 of 3 - 19+ 3-dose series) 05/11 PAP SMEAR 1996 BREAST CANCER SCREENING 2006 COLORECTAL SCREENING 2011 Colorectal Cancer Screening 2011 FIT-DNA Q 3 years 2011 FIT/FOBT Q 1 year 2011 Flex Sig/CT Colonography Q 5 years 2011 ZOSTER VACCINE (1 of 2) 2016 INFLUENZA VACCINE (#1) 2024 Preventative Visit- Commercial 11/11/2024 Insurance [facility] BLUE ACCESS/TRUE BLUE PPO [facility] BLUE ACCESS/TRUE BLUE PPO [place] [id number] [place] Care Teams Biochemistry Technologist Relationship Specialty Start Date End Date Jamari Carias MD PCP - General Family Practice 06/15/21
--- OUTSIDE RECORDS SUMMARY | 2025-02-09 14:48 | XMS_ITS | Clinical Summary ---
Author Organization [facility] Address [address] [place] [address] Care Team Providers Care Hot Roll Laminator Name Role Phone Jamari Carias MD Primary Care Provider +1- [phone] Jamari Carias MD Unavailable Allergies Active Allergy Reactions Criticality Noted Date [...] Relation Comments Cancer Brother Liver Disease Brother [place] Brother chemo caused mas sive [place] Diabetes Father Relation Status Comments Brother of [place], had liver cancer Daughter 1 Alive Daughter [...] Years) (1 of 2 - PCV) 1972 Hepatitis C 1984 DTaP, Tdap and Td Vaccines ( 1 - Tdap) 1985 Hepatitis B Vaccines (1 of 3 - 19+ 3-dose series) 1985 Mammogram Screening 2006 Zoster Vaccines (1 of 2) 2016 COVID-19 Vaccine (2023-2 5 season) 2024 PHQ-2 (Physician [place]) 11/11/2024 Meningococcal B Vaccine Aged Out No [...] Finley, RN Medical Devices Implanted Type Area Therapeutic Specialist Device Identifier Shelf Expiration Date Model / Serial / Lot Patch Dural 1x1in Duramatrix-Onla y Plus Collagen Regeneration Membrane Sterile - [id number] Implanted:Qty: 1 on 08/18/2020 by Jonnie Mtz MD at [facility] Spine Lumbar LEE CRANIOMAXILLOFACIAL - [employer] 10/10/2022 [id number] / / [id number] Bulkamid Urethra Bulking Agent - [id number] Implanted:Qty: 1 on 06/27/2023 by Sumit Wolf MD at [facility] N/A: Urethra [employer] 01/08/2026 [id number] / / [id number] Insurance MEDICAID U[employer] Advance Directives Documents on File Type Date Recorded Patient Police Captain Expl anation Advance Directives and Living Will 10/24/2020 2:13 PM 12/16/2014 LIVING VIKI L Advance Directives and Living Will 12/21/2014 ADVANCE DIRECTIVE * Full Code (Latest Code Status on File) Date Activated Date Inactivated Comments 08/18/2020 12:12 PM 08/19/2020 4:28 PM * Full Code Date Activated Date Inactivated Comments 08/16/2020 10:59 PM 08/18/2020 12:12 PM Care Teams Hot Roll Laminator Relationship Specialty Start Date End Date Jamari Carias MD [address] [place] [address] PCP - General FAMILY PRACTICE 08/16/20 Jamari Carias MD [address] [place] [address] 07/12/20
--- OUTSIDE RECORDS SUMMARY | 2025-02-09 14:48 | XMS_ITS | Encounter Summary ---
Author Organization [facility] Address [address] [place] [address] Care Team Providers Care Systems Support Specialist Name Role Phone Ariane Carias MD Primary Care Provider +1- [phone] Ariane Carias MD Unavailable [phone] Encounter Details Date Type Department Care Team (Late st Contact Info) Description 06/15/[address] [facility] [place] [place] [address] Maritza Herbert MD [address] [place] [address] Social History Tobacco Use Types [...] Diabetes Father Cancer Brother Liver Disease Brother [place] Brother chemo caused massive [place] Travel Exposure: Current Outpatient Medications on File [...] retention. She she agrees to proceed MARITZA HREBERT MD 06/15/2023 documented in this encounter Plan of Treatment Not on file documented as of this encounter Goals Goal Patient Goal Type Associated Problems Recent Progress Patient-Stated? Author Monitor - able to maintain pain control General No Daintza Finley RN documented as of this encounter Visit Diagnoses Not on filedocumented in this encounter Care Teams Systems Support Specialist Relationship Specialty Start Date End Date Ariane Carias MD [address] [address] PCP - General FAMILY PRACTICE 08/16/20 Ariane Carias MD [address] [address] 07/12/20 documented as of this encounter
[2025-02-09 14:57] LABS: Alanine Aminotransferase 20 U/L (6-35); Albumin Level 4.4 g/dL (3.5-5.1); Alkaline Phosphatase 86 U/L (38-126); Anion Gap 6 mmol/L (4-12); Aspartate Amino Transferase 22 U/L (14-36); Bilirubin,Total 0.2 mg/dL (0.2-1.3); Blood Urea Nitrogen 17 mg/dL (7-17); Calcium 9.3 mg/dL (8.4-10.2); Carbon Dioxide 31 mmol/L (22-30); Chloride 104 mmol/L (98-107); Estimated Glomerular Filt Rate > 60; Glucose 99 mg/dL (65-110); Potassium 4.6 mmol/L (3.4-5.0); Sodium 141 mmol/L (137-145)
[2025-02-10 08:08] LABS: CA 15-3 7 U/mL (<32)
== END 2025-02-09 13:37 | disposition home or self-care (01) ==
PROVIDERS: PCP Family Medicine Adolescent Medicine; Visit Provider Internal Medicine Hematology & Oncology
DX: C50.411 Malignant neoplasm of upper-outer quadrant of right female breast (principal); Z17.0 Estrogen receptor positive status [ER+]
CPT/HCPCS: 36415; 80053; 85025; 86300

== ENCOUNTER 2025-02-27 03:06 | Emergency (ER) | payer OTHER, SELFPAY ==
[2025-02-27] VITALS (7 sets, daily range): BP systolic 112–135; BP diastolic 61–83; PULSE 81–88; RESP 12–22; TEMP 36.4–36.9; O2SAT 94–100
--- OUTSIDE RECORDS SUMMARY | 2025-02-27 03:08 | XMS_ITS | Encounter Summary ---
Author Organization [facility] Address [address] [place] [address] Care Team Providers Care Supervisor Harvesting Name Role Phone Jamari Carias MD Primary Care Provider +1- [phone] Encounter Details Date Type Department Care Team (Late Contact Info) Description 06/21/2021 Chart Note [facility] Radiation Therapy [address] [place] [address] [place] [address] [place] [address] Social History Tobacco Use Types Packs/Day Years Used Date Smoking Tobacco: Never Smokeless Tobacco: Never Alcohol Use Standard Drinks/Week Comments Yes 0 (1 standard drink = 0.6 oz pur e alcohol) Comments No Sex and Gender Information Value Date Recorded Sex Assigned at Not on file 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
--- OUTSIDE RECORDS SUMMARY | 2025-02-27 03:08 | XMS_ITS | Clinical Summary ---
Author Organization [facility] Administrative Offices Address [address] [place] [address] Care Team Providers Care Appraiser Land Name Role Phone Jamari Carias MD Primary Care Provider +1- [phone] Allergies Active Allergy Reactions Criticality Noted Date [...] by mouth every 7 days. 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 Gender Identity Not on file Sexual Orientation [...] Description 03/15/2025 3:30 PM CDT Office Visit [facility] Oncology and Hematology [facility] [address] [place] [address] [facility] [address] [place] [address] Dusty Kauffman MD [address] [facility] [address] [place] [address] Health Maintenance Due Date Last [...] VACCINE (#1) 2024 Preventative Visit- Commercial 11/11/2024 Procedures Procedure Name Priority Date/Time Associated Diagnosis Comments COMPREHENSIVE METABOLIC PANEL Routine 02/09/2025 3:56 PM CDT CANCER ANTIGEN 15-3 Routine 02/09/2025 1 0:20 AM CDT from Last 3 Months Results * COMPREHENSIVE METABOLIC PANEL (02/09/2025 3:56 PM CDT) Blood Dusty Kauffman MD CHEMISTRY ORDERABLES Final Resu lt * CANCER ANTIGEN 15-3 (02/09/2025 10:20 AM CDT) Blood Dusty Kauffman MD CHEMISTRY ORDERABLES Final Resu lt from Last 3 Months Insurance [place] BLUE ACCESS/TRUE BLUE PPO [facility] BLUE ACCESS/TRUE BLUE PPO [place] [id number] [place] Care Teams Appraiser Land Relationship Specialty Start Date End Date Jamari Carias MD PCP - General Family Practice 06/15/21
--- OUTSIDE RECORDS SUMMARY | 2025-02-27 03:08 | XMS_ITS | Encounter Summary ---
Author Organization [facility] Address [address] [place] [address] Care Team Providers Care Aviation Warfare Systems Operator Name Role Phone Ariane Carias MD Primary Care Provider [phone]- [phone] Ariane Carias MD Unavailable Encounter Details Date Type Department Care Team (Late st Contact Info) Description 06/15/[address] [facility] [place] [address] Maritza Herbert MD [address] [facility] [place] [address] Social History Tobacco Use Types [...] Attending Provider: No att. providers found PCP: ARINAE CARIAS MD Daisy Benz is an 58-year-old [...] Diabetes Father Cancer Brother Liver Disease Brother [place] Brother chemo caused massive [place] Travel Exposure: Current Outpatient Medications on File [...] on filedocumented in this encounter Care Teams Aviation Warfare Systems Operator Relationship Specialty Start Date End Date Ariane Carias MD [address] [address] PCP - General FAMILY PRACTICE 08/16/20 Ariane Carias MD [address] [address] 07/12/20 documented as of this encounter
--- OUTSIDE RECORDS SUMMARY | 2025-02-27 03:08 | XMS_ITS | Clinical Summary ---
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 Immunizations Immunization Administration Dates Next Due Fluzone 6 Months+ Quad (0.5 mL Prefilled Syringe) 08/19/2020(Deferred: Other - per [place], no flu shot until 4 weeks after discharge) Family History Medical History Relation Comments Cancer Brother Liver Disease Brother [place] Brother chemo caused mas sive [place] Diabetes Father Relation Status Comments Brother of [place], had liver cancer Daughter 1 Alive Daughter [...] 5 Years) and At-Risk Patients (6 to 49 Years) (1 of 2 - PCV) 1972 Hepatitis C 1984 DTaP, Tdap and Td Vaccines ( 1 - Tdap) 1985 Hepatitis B Vaccines (1 of 3 - 19+ 3-dose series) 1985 Mammogram Screening 2006 Zoster Vaccines (1 of 2) 2016 COVID-19 Vaccine (2023-2 5 season) 2024 PHQ-2 (Physician [place]) 11/11/2024 Meningococcal B Vaccine Aged Out No [...] Finley, RN Medical Devices Implanted Type Area Logistics Coordinator Device Identifier Shelf Expiration Date Model / Serial / Lot Patch Dural 1x1in Duramatrix-Onla y Plus Collagen Regeneration Membrane Sterile - [id number] Implanted:Qty: 1 on 08/18/2020 by Jonnie Mtz MD at [facility] Spine Lumbar LEE CRANIOMAXILLOFACIAL - [employer] 10/10/2022 [id number] / / [id number] Bulkamid Urethra Bulking Agent - [id number] Implanted:Qty: 1 on 06/27/2023 by Sumit Wolf MD at [facility] N/A: Urethra [employer] 01/08/2026 [id number] / / [id number] Insurance MEDICAID UHC Advance Directives Documents on File Type Date Recorded 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 Advance Directives and Living Will 10/24/2020 2:13 PM 12/16/2014 LIVING VIKI L Advance Directives and Living Will 12/21/2014 ADVANCE DIRECTIVE * Full Code (Latest Code Status on File) Date Activated Date Inactivated Comments 08/18/2020 12:12 PM 08/19/2020 4:28 PM * Full Code Date Activated Date Inactivated Comments 08/16/2020 10:59 PM 08/18/2020 12:12 PM Care Teams Machine Stripper Cutter Relationship Specialty Start Date End Date Jamari Carias MD [address] [place] [address] PCP - General FAMILY PRACTICE 08/16/20 Jamari Carias MD [address] [place] [address] 07/12/20
[2025-02-27 03:47] LABS: Basophils Absolute Auto 0.1 K/mm3 (0.0-0.1); Basophils Percent Auto 0.4 % (0.2-1.2); Eosinophils Absolute Auto 0.1 K/mm3 (0-0.3); Eosinophils Percent Auto 0.4 % (0-4.4); Hemoglobin 13.8 g/dL (12.0-15.0); Immature Granulocyte Absolute 0.05 K/mm3 (0.00-0.031); Immature Granulocyte Percent A 0.4 % (0-0.5); Lymphocytes Absolute Auto 1.62 K/mm3 (0.9-3.2); Lymphocytes Percent Auto 11.9 % (18.3-44.2); Mean Corpuscular HGB Conc 32.9 g/dl (32-36); Mean Corpuscular Hemoglobin 30.8 pg (26-34); Mean Corpuscular Volume 93.8 fl (80-100); Mean Platelet Volume 9.4 fl (7.4-10.4); Monocytes Absolute Auto 1.2 K/mm3 (0.1-0.6); Monocytes Percent Auto 8.7 % (2.6-8.5); Neutrophils Absolute Auto 10.7 K/mm3 (1.3-6.7); Neutrophils Percent Auto 78.2 % (45.5-73.1); Platelet Count Result 254 k/mm3 (150-375); Red Blood Count 4.48 M/mm3 (4.2-5.4); Red Cell Distribution Width 13.1 % (11.5-14.5); White Blood Count 13.7 K/mm3 (4.5-10.0)
--- OUTSIDE RECORDS SUMMARY | 2025-02-27 03:56 | XMS_ITS | Encounter Summary ---
Author Organization [facility] Address [address] [place] [address] Care Team Providers Care Track Welder Name Role Phone Jamari Carias MD Primary Care Provider [phone]- [phone] Encounter Details Date Type Department Care Team (Late Contact Info) Description 06/21/2021 Chart Note [facility] Radiation Therapy [address] [place] [address] [place] [address] [place] [address] Social History Tobacco Use Types Packs/Day Years Used Date Smoking Tobacco: Never Smokeless Tobacco: Never Alcohol Use Standard Drinks/Week Comments Yes 0 (1 standard drink = 0.6 oz pur e alcohol) Comments No Sex and Gender Information Value Date Recorded Sex Assigned at Not on file 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
--- OUTSIDE RECORDS SUMMARY | 2025-02-27 03:56 | XMS_ITS | Clinical Summary ---
Author Organization [facility] Administrative Offices Address [address] [place] [address] Care Team Providers Care Environmental Law Professor Name Role Phone Jamari Carias MD Primary Care Provider [phone]- [phone] Allergies Active Allergy Reactions Criticality Noted Date [...] by mouth every 7 days. 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 Gender Identity Not on file Sexual Orientation [...] 03/15/2025 3:30 PM CDT Office Visit [facility] Oncology and Hematology [facility] [address] [place] [address] [facility] [address] [place] [address] Dusty Kauffman MD [address] [facility] [address] [place] [address] Health Maintenance Due Date Last [...] Resu lt from Last 3 Months Insurance [employer] BLUE ACCESS/TRUE BLUE PPO [facility] BLUE ACCESS/TRUE BLUE PPO [place] [id number] [place] Care Teams Environmental Law Professor Relationship Specialty Start Date End Date Jamari Carias MD PCP - General Family Practice 06/15/21
[2025-02-27 03:57] LABS: Alanine Aminotransferase 21 U/L (6-35); Albumin Level 4.9 g/dL (3.5-5.1); Alkaline Phosphatase 88 U/L (38-126); Anion Gap 14 mmol/L (4-12); Aspartate Amino Transferase 24 U/L (14-36); Bilirubin,Total 0.7 mg/dL (0.2-1.3); Blood Urea Nitrogen 19 mg/dL (7-17); Calcium 8.9 mg/dL (8.4-10.2); Carbon Dioxide 24 mmol/L (22-30); Chloride 105 mmol/L (98-107); Estimated CRCL calculation 57 ml/min; Estimated Glomerular Filt Rate 60; Glucose 99 mg/dL (65-110); Lipase 23 U/L (23-300); Magnesium 2.5 mg/dL (1.6-2.3); Potassium 3.6 mmol/L (3.4-5.0); Sodium 143 mmol/L (137-145)
--- NOTE | 2025-02-27 04:13 | ED.GENADULT ---
HPI - General Adult General Chief complaint: Nausea/Vomiting/Diarrhea Stated complaint: nausea/ vomiting/ migraine Time Seen by Provider: 02/27/25 03:30 History of Present Illness HPI narrative: Patient is a 59-year-old female who presents the emergency department this evening complaining of nausea, vomiting and migraine. Patient admits that she does have a history of migraines and states that her migraine medications have not been helping. Rates the headache at a 7/10, denies any sudden severe worse headache of her life sensation. Currently denying any abdominal pain, chest pain or SOB. Denies any additional symptoms or concerns. Related Data Home Medications ?Medication ?Instructions ?Recorded ?Confirmed ?Last Taken ?Type biotin 10,000 mcg-keratin 100 mg 1 tablet PO DAILY 05/08/21 02/25/25 Unknown History tablet (Biotin Plus Keratin) anastrozole 1 mg tablet 1 mg PO DAILY 05/16/23 02/25/25 Unknown History Allergies Allergy/AdvReac Type Severity Reaction Status Date / Time codeine Allergy Mild RASH AND Verified 02/27/25 03:07 ITCHING Review of Systems Review of Systems: All systems are reviewed and are negative unless stated otherwise in the HPI. [facility] Past Medical History Medical History Hx of breast cancer Colon polyp Anxiety Hypertension Hypercholesteremia High cholesterol Kidney stones Depression Surgical History Surgical History History of partial hysterectomy History of cervical discectomy History of lumpectomy 06/12/21 [place] lymph node biopsy times 1. 2. needle localized right breast lumpectomy. History of appendectomy S/P hysterectomy H/O lithotripsy Previous back surgery Family History Family History Father Diabetes mellitus Sibling Liver cancer Heart attack Acute myocardial infarction Allergy Carcinoma of colon Colon polyp Depression Hypertension Unknown Diabetes mellitus Hypertension Cancer Nervous disorder Allergy Grandparent Breast cancer Diabetes mellitus Grandparent Breast cancer Diabetes mellitus Mother Allergy Social History Social History Smoking packs per day: 0.5 Smoking cigarettes per day: 10.0 Years smoked: 8 Smoking pack-years: 4.00 Smoking status: Current some day smoker Tobacco type: e-cigarettes/vaping Smokeless tobacco user: other Second hand tobacco smoke exposure: No Additional smoking assessment comments: down to 1/4 pack of day currently vaping Alcohol intake: never Substance use: never Substance use type: does not use Lack of Transportation: No Lack of Food: Never True Current Housing: I Have Housing Concerned About Future Housing: No Difficulty Paying Gas/Electric Bills: No Difficulty Paying for Meds: No Currently Unemployed: No Education: Associate Degree Difficulty w/ Childcare or Family Care: No Living arrangements: with roommate(s) Occupation/Education: occupation Gender identity (if verbalized by the patient): Female Sexual Orientation (if Verbalized by the Patient): Straight or Heterosexual Spiritual care concerns: No Agree to blood products: Yes Exam Narrative: General: Alert, awake, afebrile, in no acute distress. HEENT: PERRL, no rhinorrhea, no post nasal drip, oropharynx clear. Neck: Trachea midline, no JVD, no lymphadenopathy. Cardiovascular: Regular rate and rhythm, no murmurs, rubs or gallops, no peripheral edema. Respiratory: Clear to auscultation bilaterally, no tachypnea, no wheezing, no rhonchi, no rubs, no respiratory distress. Abdomen: Soft, nontender, nondistended, no rebound, no guarding, no peritoneal signs. Musculoskeletal: No joint swelling or deformity, normal muscle tone. Skin: No rashes or petechia, no signs of infection. Psychiatric: Alert and oriented, normal behavior and judgment for situation. Neurological: Alert and oriented to person, place, and time. Follows all commands. No focal deficits, speech is clear and fluent. Course Vital Signs Vital signs: Vital Signs Temperature 97.5 F L 02/27/25 03:07 Pulse Rate 88 02/27/25 03:07 Respiratory Rate 22 H 02/27/25 03:07 Blood Pressure 135/83 02/27/25 03:07 Pulse Oximetry 94 02/27/25 03:07 Oxygen Delivery Room Air 02/27/25 03:07 Temperature 98.4 F 02/27/25 04:16 Pulse Rate 88 02/27/25 03:07 Respiratory Rate 22 H 02/27/25 03:07 Blood Pressure 123/64 02/27/25 04:43 Pulse Oximetry 100 02/27/25 04:45 Oxygen Delivery Room Air 02/27/25 03:07 Medical Decision Making MDM Narrative Medical decision making narrative: The patient was evaluated by myself in the emergency department. History is obtained from patient who is an independent historian and physical exam was performed. External medical records were reviewed at this time. IV was established and pertinent tests were ordered. Patient was administered 1 L IV fluid bolus with normal saline, 4 mg IV Zofran, 10 mg of IV Reglan, 15 mg of IV Toradol and 25 mg of IV Benadryl for headache. EKG was obtained antibody interpreted by me revealing sinus rhythm rate of 81 beats per minute, no evidence of acute ischemia. EKG currently pending official cardiology read. Laboratory results obtained revealing a leukocytosis of 13.7, otherwise unremarkable. Differential diagnosis considerations include acute viral syndrome, dehydration, electrolyte derangements, migraine headache, acute viral syndrome. Comorbidities impacting this visit include history of migraines. I have evaluated and discussed social determinants of health with the patient that could potentially impact subsequent diagnosis and treatment plans. On repeat assessment of the patient, reevaluation revealed that the patient is doing well and is in no acute distress. Patient symptoms have improved since she arrived to our emergency department. Patient was resting comfortably asleep. States that her headache has resolved. Repeat vital signs were all reviewed and noted to be stable. Differential diagnosis and treatment plan were discussed with the patient at bedside. Patient agrees with discussion and after shared medical decision making agrees with discharge. All questions were answered to the patient's satisfaction. Patient will follow up with her PCP in 3-5 days. Script for Zofran sent to patient's pharmacy to use as needed for nausea/vomiting. Patient was provided with strict return precautions and instructed to return to the emergency department if any new or worsening symptoms develop. The patient was discharged in stable condition. Vital Signs Vital Signs: Vital Signs Temperature 97.5 F L 02/27/25 03:07 Pulse Rate 88 02/27/25 03:07 Respiratory Rate 22 H 02/27/25 03:07 Blood Pressure 135/83 02/27/25 03:07 Pulse Oximetry 94 02/27/25 03:07 Oxygen Delivery Room Air 02/27/25 03:07 Temperature 98.4 F 02/27/25 04:16 Pulse Rate 88 02/27/25 03:07 Respiratory Rate 22 H 02/27/25 03:07 Blood Pressure 123/64 02/27/25 04:43 Pulse Oximetry 100 02/27/25 04:45 Oxygen Delivery Room Air 02/27/25 03:07 Lab Data 02/27/25 03:40 02/27/25 03:40 Labs: Lab Results 02/27/25 02/27/25 Range/Units 03:40 04:11 WBC 13.7 H (4.5-10.0) K/mm3 RBC 4.48 (4.2-5.4) M/mm3 Hgb 13.8 (12.0-15.0) g/dL Hct 42.0 (37.0-47.0) % MCV 93.8 (80-100) fl MCH 30.8 (26-34) pg MCHC 32.9 (32-36) g/dl RDW 13.1 (11.5-14.5) % Plt Count 254 (150-375) k/mm3 MPV 9.4 (7.4-10.4) fl Immature Gran % (Auto) 0.4 (0-0.5) % Neut % (Auto) 78.2 H (45.5-73.1) % Lymph % (Auto) 11.9 L (18.3-44.2) % [place] % (Auto) 8.7 H (2.6-8.5) % Eos % (Auto) 0.4 (0-4.4) % Baso % (Auto) 0.4 (0.2-1.2) % Lymph # (Auto) 1.62 (0.9-3.2) K/mm3 [place] # (Auto) 1.2 H (0.1-0.6) K/mm3 Eos # (Auto) 0.1 (0-0.3) K/mm3 Baso # (Auto) 0.1 (0.0-0.1) K/mm3 Abs Immat Gran (auto) 0.05 H (0.00-0.031) K/mm3 Absolute Neuts (auto) 10.7 H (1.3-6.7) K/mm3 Absolute Nucleated RBC 0.000 (0.0-0.012) K/mm3 Nucleated RBC % 0.0 (0.0-0.2) % Sodium 143 (137-145) mmol/L Potassium 3.6 (3.4-5.0) mmol/L Chloride 105 (98-107) mmol/L Carbon Dioxide 24 (22-30) mmol/L Anion Gap 14 H (4-12) mmol/L BUN 19 H (7-17) mg/dL Creatinine 0.96 (0.7-1.0) mg/dL Estim Creat Clear Calc 57 ml/min Estimated GFR 60 (59 - ) Glucose 99 (65-110) mg/dL Calcium 8.9 (8.4-10.2) mg/dL Magnesium 2.5 H (1.6-2.3) mg/dL Total Bilirubin 0.7 (0.2-1.3) mg/dL AST 24 (14-36) U/L ALT 21 (6-35) U/L Alkaline Phosphatase 88 (38-126) U/L Total Protein 8.0 (6.3-8.2) g/dL Albumin 4.9 (3.5-5.1) g/dL Lipase 23 (23-300) U/L Urine Color Dark yellow (Yellow) Urine Appearance Cloudy H (Clear) Urine pH 6.5 (5.0-9.0) Ur Specific [place] 1.035 (1.001-1.035) Urine Protein 1+ H (Negative) mg/dL Urine Glucose (UA) Negative (Negative) mg/dL Urine Ketones 2+ H (Negative) mg/dL Ur Blood (Man) 1+ H (Negative) Urine Nitrate Negative (Negative) Urine Bilirubin Negative (Negative) Urine Urobilinogen 1.0 (<2.0) mg/dL Leukocyte Esterase Rfl 1+ H (Negative) ARCHIE/UL Urine RBC 21-50 H (0-2) /hpf Urine WBC 11-20 H (0-3) /hpf Ur Squamous Epith Cells Few (Few) /hpf Urine Bacteria None seen /hpf Urine Casts 0-2 Influenza A (RT-PCR) Negative (Negative) Influenza B (RT-PCR) Negative (Negative) RSV (RT-PCR) Negative (Negative) SARS-CoV-2 RNA (RT-PCR) Negative (Negative) Discharge Plan Discharge Clinical Impression: Nausea & vomiting, Cephalalgia Patient Disposition: Home Condition: Improved Instructions: Antibiotic Form, Acute Headache (DC), Acute Nausea and Vomiting (ED) Additional Instructions: Please follow-up with your family doctor within the next 3-5 days. Return to the emergency department if any new or worsening symptoms develop. Patient Language: Slovenian Prescriptions: New ondansetron 4 mg tablet,disintegrating 4 mg PO Q8H PRN (Reason: nausea and vomiting) Qty: 10 0RF No Action anastrozole 1 mg tablet 1 mg PO DAILY Biotin Plus Keratin 10,000-100 mcg-mg tablet 1 tablet PO DAILY metronidazole 0.75 % (37.5mg/5 gram) gel 1 appful vaginal QHS 7 Days Qty: 70 1RF propranolol 80 mg capsule,extended release 24hr 80 mg PO DAILY Qty: 30 5RF fenofibrate 160 mg tablet 160 mg PO DAILY Qty: 90 1RF venlafaxine 75 mg capsule,extended release 24hr 75 mg PO DAILY Qty: 90 2RF bupropion HCl 300 mg tablet extended release 24 hr 300 mg PO QAM Qty: 90 1RF sumatriptan succinate 100 mg tablet 100 mg PO ONCE PRN (Reason: Migraine Headache) Qty: 9 2RF trazodone 100 mg tablet 100 mg PO QHS PRN (Reason: Insomnia) Qty: 90 1RF levocetirizine 5 mg tablet 5 mg PO DAILY PRN (Reason: allergy symptoms) Qty: 90 0RF Aimovig Autoinjector 140 mg/mL auto-injector 140 mg subcut MONTHLY Qty: 1 2RF Follow-up/Referrals: Jamari Carias MD [Primary Care Provider] - 3 Days Time of Disposition: 04:27
[2025-02-27] MEDS: SODIUM CHLORIDE 0.9% IV 1,000 ML 999 ML IV CONT (04:18)
[2025-02-27] MEDS: ONDANSETRON INJ 4 MG/2 ML VIAL IV PUSH (04:18)
--- NOTE | 2025-02-27 04:20 | ECG_ITS ---
Test Date: 2025-02-27 04:41:38 Measurements Intervals [place] Rate: 81 P: 66 LA: 139 QRS: 57 QRSD: 106 T: 56 QT: 409 QTc: 478 Interpretive Statements SINUS RHYTHM BORDERLINE ST-T WAVE ABNORMALITY- HIGH LATERAL LEADS BASELINE WANDER- I, II, III, AVL, AVF, V3 BORDERLINE ECG No previous ECG available for comparison Electronically Signed On 02-27-2025 07:07:29 CDT by Quinton Gay D.O.
[2025-02-27 04:22] LABS: Influenza A QL RT-PCR Negative (Negative); Influenza B QL RT-PCR Negative (Negative); RSV RNA, RT-PCR Negative (Negative); SARS-CoV-2 RNA PCR Negative (Negative)
[2025-02-27 04:22] LABS: Add Urine Microscopic? YES; Appearance Urine Cloudy (Clear); Bacteria Urine None Seen /hpf; Bilirubin Urine Negative (Negative); Blood Urine 1+ (Negative); Color Urine Dark Yellow (Yellow); Glucose Urine UA Negative (Negative); Ketones Urine 2+ mg/dL (Negative); Leukocyte Esterase Ur 1+ LEU/UL (Negative); Nitrate Urine Negative (Negative); Non Pathogenic Casts 0-2; Protein Urine 1+ mg/dL (Negative); RBC Urine 21-50 /hpf (0-2); Specific Grav Ur 1.035 (1.001-1.035); Squamous Epithelial Cell Urine Few /hpf (Few); pH Urine 6.5 (5.0-9.0)
[2025-02-27] MEDS: METOCLOPRAMIDE HCL INJ 10 MG/2 ML VIAL IV PUSH (04:23)
[2025-02-27] MEDS: diphenhydrAMINE HCl INJ 50 MG/ML VIAL 25 MG IV PUSH (04:25)
[2025-02-27] MEDS: KETOROLAC 15 MG/ML VIAL (*BKC) IV PUSH (04:26)
== END 2025-02-27 05:52 | disposition home or self-care (01) ==
PROVIDERS: Emergency Provider Emergency Medicine; PCP Family Medicine Adolescent Medicine
DX: R11.2 Nausea with vomiting, unspecified (principal); R51.9 Headache, unspecified; Z85.3 Personal history of malignant neoplasm of breast; I10 Essential (primary) hypertension; E78.00 Pure hypercholesterolemia, unspecified; F41.8 Other specified anxiety disorders; Z20.822 Contact with and (suspected) exposure to COVID-19
CPT/HCPCS: 36415; 80053; 81001; 83690; 83735; 85025; 87086; 87637; 93005; 96361; 96374; 96375; 99284; J1200; J1885; J2405; J2765; J7030

== ENCOUNTER 2025-08-30 07:04 | Outpatient (CLI) | payer OTHER, SELFPAY ==
--- NOTE | ~2025-08-30 | MM_ITS ---
EXAMINATION: MM screening [facility] BI w lydia INDICATION: Asymptomatic, referred for screening mammogram. History of Right partial mastectomy 2020. COMPARISON: 06/22/2024 through 01/03/2016 TECHNIQUE: Digital Breast Tomosynthesis CC, MLO views were obtained of Both breasts with computer-aided detection to assist in interpretation of the study. FINDINGS: The breasts are extremely dense, which lowers the sensitivity of mammography. Posttreatment changes in Right breast are stable. No new focal dominant mass, architectural distortion, or suspicious microcalcifications are identified. There are no features to suggest malignancy. IMPRESSION: Stable benign mammogram. No evidence of malignancy in the breast. Recommend annual screening mammography in 12 months. BI-RADS 2, BENIGN Reviewed, dictated and finalized at location B.
== END 2025-08-30 07:05 | disposition home or self-care (01) ==
PROVIDERS: PCP Internal Medicine Hematology & Oncology; Referring Provider Family Medicine Adolescent Medicine; Visit Provider Obstetrics & Gynecology Gynecology
DX: Z12.31 Encounter for screening mammogram for malignant neoplasm of breast (principal)
CPT/HCPCS: 77063; 77067

== ENCOUNTER 2025-09-30 07:57 | Outpatient (CLI) | payer OTHER, SELFPAY ==
[2025-09-30 08:52] LABS: Hematocrit 40.6 % (37.0-47.0); Hemoglobin 13.3 g/dL (12.0-15.0); Mean Corpuscular HGB Conc 32.8 g/dl (32-36); Mean Corpuscular Hemoglobin 30.6 pg (26-34); Mean Corpuscular Volume 93.3 fl (80-100); Platelet Count Result 234 k/mm3 (150-375); Red Blood Count 4.35 M/mm3 (4.2-5.4); White Blood Count 5.8 K/mm3 (4.5-10.0)
[2025-09-30 09:09] LABS: Alanine Aminotransferase 19 U/L (6-35); Albumin Level 4.1 g/dL (3.5-5.1); Alkaline Phosphatase 65 U/L (38-126); Anion Gap 7 mmol/L (4-12); Aspartate Amino Transferase 27 U/L (14-36); Bilirubin,Total 0.3 mg/dL (0.2-1.3); Blood Urea Nitrogen 20 mg/dL (7-17); Calcium 8.8 mg/dL (8.4-10.2); Carbon Dioxide 24 mmol/L (22-30); Chloride 109 mmol/L (98-107); Cholesterol 187 mg/dL (0-200); Estimated Glomerular Filt Rate 55; Glucose 105 mg/dL (65-110); HDL Direct 38 mg/dL; Potassium 4.2 mmol/L (3.4-5.0); Sodium 140 mmol/L (137-145); Total Protein 7.1 g/dL (6.3-8.2); Triglycerides 265 mg/dL (<150)
[2025-09-30 09:24] LABS: Free T4 Free Thyroxine 0.94 ng/dL (0.78-2.19)
[2025-09-30 09:35] LABS: Syphilis IgG/IgM Antibody Non-Reactive (Nonreactive)
[2025-09-30 09:39] LABS: Thyroid Stimulating Hormone < 0.015 uIU/mL (0.465-4.680)
[2025-09-30 09:40] LABS: Hepatitis B Surface Antigen Negative (Negative)
[2025-09-30 09:46] LABS: HAV RESULT Negative (Negative); Hepatitis B Core IgM Result Negative (Negative)
[2025-09-30 09:48] LABS: HIV 1/2 Ab P24 Ag Result Negative (Negative)
[2025-09-30 09:58] LABS: Vitamin B12 687.0 pg/mL (239-931)
[2025-09-30 09:59] LABS: Hemoglobin A1C 5.8 % (<5.7)
== END 2025-09-30 07:58 | disposition home or self-care (01) ==
LOC: ANHLAB 08:01
PROVIDERS: PCP Internal Medicine Hematology & Oncology
DX: E55.9 Vitamin D deficiency, unspecified (principal); Z11.3 Encounter for screening for infections with a predominantly sexual mode of transmission; Z11.4 Encounter for screening for human immunodeficiency virus [HIV]; Z20.2 Contact with and (suspected) exposure to infections with a predominantly sexual mode of transmission; Z01.419 Encounter for gynecological examination (general) (routine) without abnormal findings
CPT/HCPCS: 36415; 80053; 80061; 80074; 82306; 82607; 83036; 84439; 84443; 85027; 86593; 86703; G0432